=== PATIENT | male | born 1950 | race Caucasian/White ===

== ENCOUNTER → 2020-05-08 09:20 | Outpatient (BNVA) | payer MEDICARE, SELFPAY | PROVIDERS: PCP Internal Medicine Nephrology; Visit Provider Psychiatry & Neurology Neurology | DX: G47.33 Obstructive sleep apnea (adult) (pediatric) (principal); Z99.89 Dependence on other enabling machines and devices | CPT/HCPCS: 99214 ==

== ENCOUNTER 2020-05-21 10:47 | Outpatient (REF) | payer MEDICARE, SELFPAY ==
[2020-05-21 14:02] LABS: MANUAL DIFF FLAG NO
[2020-05-21 14:06] LABS: Basophils Percent Auto 0.2 % (0-2); Eosinophils Absolute Auto 0.2 X10*3/uL (0.0-0.4); Eosinophils Percent Auto 1.4 % (0-4); Hematocrit 42.4 % (42-52); Hemoglobin 12.9 g/dl (14.0-18.0); Imm Gran Abs Auto 0.04 X10*3/uL (0.00-0.03); Imm Gran Pct Auto 0.3 % (0.0-0.4); Lymphocytes Absolute Auto 2.7 X10*3/uL (1.2-4.9); Lymphocytes Percent Auto 20.2 % (20-40); Mean Corpuscular HGB Conc 30.4 g/dl (31.0-36.0); Mean Corpuscular Hemoglobin 25.9 pg (27.0-33.0); Mean Corpuscular Volume 85.1 fL (80-98); Mean Platelet Volume 10.4 fL (9.4-12.4); Monocytes Absolute Auto 0.7 X10*3/uL (0.1-1.2); Monocytes Percent Auto 4.9 % (2-11); Neutrophils Absolute Auto 9.9 X10*3/uL (2.0-8.3); Platelet Count 358 X10*3/uL (160-400); Red Blood Count 4.98 X10*6/uL (4.60-5.80); Red Cell Distribution Width 15.2 % (11.0-16.0); White Blood Count 13.6 X10*3/uL (4.8-10.8)
[2020-05-21 14:37] LABS: Alanine Aminotransferase 28 U/L (0-40); Albumin Level 3.6 g/dL (3.5-5.0); Alkaline Phosphatase 110 U/L (39-117); Anion Gap 14 (12-20); Aspartate Amino Transferase 23 U/L (5-37); Bilirubin Total 0.4 mg/dL (0.0-1.0); Blood Urea Nitrogen 17 mg/dL (9-16); Calcium 7.9 mg/dL (8.4-10.2); Carbon Dioxide 27 mmol/L (22-29); Chloride 106 mmol/L (96-108); Cholesterol 131 mg/dL; Estimated Glomerular Filt Rate > 60; Glucose Fasting 133 mg/dL (60-99); HDL Cholesterol 49 mg/dL; LDL Cholesterol Calculated 67 mg/dl; Potassium 5.1 mmol/l (3.3-5.1); Sodium 142 mmol/L (135-145); Total Protein 7.2 g/dL (6.5-8.0); Triglycerides 75 mg/dL
[2020-05-21 15:04] LABS: Thyroid Stimulating Hormone 0.76 mIU/mL (0.32-4.0)
[2020-05-21 15:39] LABS: Prostate Specific Antigen 31.65 ng/mL (<0.05-4.0)
== END 2020-05-21 10:48 | disposition home or self-care (01) ==
LOC: HO.HMGCLDS 10:47
PROVIDERS: PCP Internal Medicine; Visit Provider Internal Medicine
DX: E78.00 Pure hypercholesterolemia, unspecified (principal); E05.00 Thyrotoxicosis with diffuse goiter without thyrotoxic crisis or storm; Z12.5 Encounter for screening for malignant neoplasm of prostate
CPT/HCPCS: 36415; 80053; 80061; 84153; 84443; 85025

== ENCOUNTER 2020-06-06 09:37 | Outpatient (REF) | payer MEDICARE, SELFPAY ==
[2020-06-06 11:36] LABS: Glucose Urine UA NEG (NEG); Leukocyte Esterase Urine NEG (NEG); Nitrite Urine NEG (NEG); Specific Gravity - Urine 1.025 (1.005-1.025); Urine Blood 2+ (NEG); Urine Ketones NEG (NEG); Urine Protein NEG (NEG-TRACE)
[2020-06-06 11:40] LABS: Appearance Urine CLEAR; Color Urine YELLOW
[2020-06-06 11:47] LABS: Calcium 8.4 mg/dL (8.4-10.2); Magnesium 2.2 mg/dL (1.6-2.6)
[2020-06-06 12:03] LABS: Vitamin D 25-OH Total 47.2 ng/mL (>30)
[2020-06-06 12:08] LABS: Estimated Average Glucose 171 mg/dL; Hemoglobin A1c % 7.6 %; RBC Urine 0 /HPF (0); Renal Epithelial Cells Urine 1+ /LPF; Squamous Epithelial Cell Urine TRACE /LPF; WBC Urine 0 /HPF (0-4)
[2020-06-06 12:38] LABS: Creatinine Urine 135.38 mg/dL; Microalbum/Creatinine Ratio Ur 13.2 ug/mg cr
[2020-06-08 11:26] LABS: Calcium (PTHI) 8.8 mg/dL (8.6-10.3); PTHI 52 pg/mL (14-64)
== END 2020-06-06 09:38 | disposition home or self-care (01) ==
LOC: HO.HMGCLDS 09:37
PROVIDERS: PCP Internal Medicine; Visit Provider Internal Medicine
DX: E83.51 Hypocalcemia (principal); R73.01 Impaired fasting glucose; E55.9 Vitamin D deficiency, unspecified
CPT/HCPCS: 81001; 82043; 82306; 82310; 82330; 83036; 83735; 83970; 84153

== ENCOUNTER → 2020-07-31 08:32 | Outpatient (BNVA) | payer MEDICARE, SELFPAY | PROVIDERS: PCP Internal Medicine; Visit Provider Psychiatry & Neurology Neurology | DX: Z76.89 Persons encountering health services in other specified circumstances (principal) | CPT/HCPCS: Q3014 ==

== ENCOUNTER → 2020-08-23 13:35 | Outpatient (BNVA) | payer MEDICARE, SELFPAY | PROVIDERS: PCP Internal Medicine; Visit Provider Internal Medicine Cardiovascular Disease | DX: E78.5 Hyperlipidemia, unspecified (principal); Z51.81 Encounter for therapeutic drug level monitoring; Z79.899 Other long term (current) drug therapy | CPT/HCPCS: 93005; 99212 ==

== ENCOUNTER → 2021-02-12 09:30 | Outpatient (BNVA) | payer MEDICARE, SELFPAY | PROVIDERS: PCP Internal Medicine; Visit Provider Psychiatry & Neurology Neurology | DX: G47.33 Obstructive sleep apnea (adult) (pediatric) (principal) | CPT/HCPCS: Q3014 ==

== ENCOUNTER → 2021-02-18 15:11 | Outpatient (BNVA) | payer MEDICARE, SELFPAY | PROVIDERS: PCP Internal Medicine; Visit Provider Internal Medicine Cardiovascular Disease | DX: E78.5 Hyperlipidemia, unspecified (principal); Z79.899 Other long term (current) drug therapy | CPT/HCPCS: 99212 ==

== ENCOUNTER 2021-05-03 09:51 | Outpatient (REF) | payer MEDICARE, SELFPAY ==
[2021-05-03 11:25] LABS: MANUAL DIFF FLAG NO
[2021-05-03 11:32] LABS: Basophils Percent Auto 0.1 % (0-2); Eosinophils Absolute Auto 0.1 X10*3/uL (0.0-0.4); Eosinophils Percent Auto 1.2 % (0-4); Hematocrit 39.8 % (42-52); Hemoglobin 13.2 g/dl (14.0-18.0); Imm Gran Abs Auto 0.05 X10*3/uL (0.00-0.03); Imm Gran Pct Auto 0.5 % (0.0-0.4); Lymphocytes Absolute Auto 0.6 X10*3/uL (1.2-4.9); Mean Corpuscular HGB Conc 33.2 g/dl (31.0-36.0); Mean Corpuscular Hemoglobin 29.5 pg (27.0-33.0); Mean Corpuscular Volume 88.8 fL (80-98); Mean Platelet Volume 9.5 fL (9.4-12.4); Monocytes Absolute Auto 0.5 X10*3/uL (0.1-1.2); Monocytes Percent Auto 5.2 % (2-11); Platelet Count 269 X10*3/uL (160-400); Red Blood Count 4.48 X10*6/uL (4.60-5.80); Red Cell Distribution Width 12.5 % (11.0-16.0); White Blood Count 10.4 X10*3/uL (4.8-10.8)
[2021-05-03 11:34] LABS: Appearance Urine CLEAR; Color Urine YELLOW; Glucose Urine UA NEG (NEG); Leukocyte Esterase Urine NEG (NEG); Nitrite Urine NEG (NEG); Specific Gravity - Urine 1.025 (1.005-1.025); Urine Blood 2+ (NEG); Urine Ketones NEG (NEG); Urine Protein 1+ MG/DL (NEG-TRACE)
[2021-05-03 12:17] LABS: Alanine Aminotransferase 10 U/L (0-40); Albumin Level 3.5 g/dL (3.5-5.0); Alkaline Phosphatase 103 U/L (39-117); Anion Gap 14 (12-20); Aspartate Amino Transferase 11 U/L (5-37); Bilirubin Total 0.7 mg/dL (0.0-1.0); Blood Urea Nitrogen 17 mg/dL (9-16); Calcium 8.6 mg/dL (8.4-10.2); Carbon Dioxide 26 mmol/L (22-29); Chloride 105 mmol/L (96-108); Cholesterol 136 mg/dL; Estimated Glomerular Filt Rate > 60; Glucose Fasting 137 mg/dL (60-99); HDL Cholesterol 40 mg/dL; LDL Cholesterol Calculated 83 mg/dl; Potassium 4.6 mmol/L (3.3-5.1); Sodium 140 mmol/L (135-145); Total Protein 6.6 g/dL (6.5-8.0); Triglycerides 66 mg/dL
[2021-05-03 12:21] LABS: Estimated Average Glucose 126 mg/dL; Thyroid Stimulating Hormone 0.66 uIU/mL (0.32-4.0); Vitamin D 25-OH Total 54.5 ng/mL (>30)
[2021-05-03 12:38] LABS: Mucus Urine 4+ /LPF; Squamous Epithelial Cell Urine TRACE /LPF; WBC Urine 0-2 /HPF (0-4)
[2021-05-03 13:54] LABS: Creatinine Urine 233.27 mg/dL; Microalbum/Creatinine Ratio Ur 122.6 ug/mg cr
== END 2021-05-03 09:52 | disposition home or self-care (01) ==
LOC: HO.HMGCLDS 09:51
PROVIDERS: PCP Internal Medicine; Visit Provider Internal Medicine
DX: E11.9 Type 2 diabetes mellitus without complications (principal); E78.00 Pure hypercholesterolemia, unspecified; E55.9 Vitamin D deficiency, unspecified; E05.00 Thyrotoxicosis with diffuse goiter without thyrotoxic crisis or storm
CPT/HCPCS: 36415; 80053; 80061; 81001; 82043; 82306; 83036; 84443; 85025

== ENCOUNTER → 2021-07-23 11:23 | Outpatient (BNVA) | payer MEDICARE, SELFPAY | PROVIDERS: PCP Internal Medicine; Visit Provider Psychiatry & Neurology Neurology | DX: G47.33 Obstructive sleep apnea (adult) (pediatric) (principal) | CPT/HCPCS: 99212 ==

== ENCOUNTER → 2021-08-20 09:05 | Outpatient (REF) | payer MEDICARE, SELFPAY | LOC: HO.SL 09:05 | PROVIDERS: PCP Internal Medicine; Visit Provider Psychiatry & Neurology Neurology | DX: G47.33 Obstructive sleep apnea (adult) (pediatric) (principal) | CPT/HCPCS: 99211 ==

== ENCOUNTER 2021-11-12 09:44 | Outpatient (REF) | payer MEDICARE, SELFPAY ==
[2021-11-12 11:38] LABS: MANUAL DIFF FLAG NO
[2021-11-12 11:47] LABS: Basophils Percent Auto 0.7 % (0-2); Eosinophils Absolute Auto 0.1 X10*3/uL (0.0-0.4); Eosinophils Percent Auto 3.2 % (0-4); Hematocrit 40.6 % (42.0-52.0); Hemoglobin 13.4 g/dl (14.0-18.0); Imm Gran Abs Auto 0.01 X10*3/uL (0.00-0.03); Imm Gran Pct Auto 0.2 % (0.0-0.4); Lymphocytes Absolute Auto 1.2 X10*3/uL (1.2-4.9); Mean Corpuscular Hemoglobin 29.3 pg (27.0-33.0); Mean Corpuscular Volume 88.8 fL (80.0-98.0); Mean Platelet Volume 10.4 fL (9.4-12.4); Monocytes Absolute Auto 0.3 X10*3/uL (0.1-1.2); Monocytes Percent Auto 7.7 % (2-11); Neutrophils Absolute Auto 2.7 x10*3/uL (2.0-8.3); Neutrophils Percent Auto 61.2 % (45-73); Platelet Count 224 X10*3/uL (160-400); Red Blood Count 4.57 X10*6/uL (4.60-5.80); Red Cell Distribution Width 13.5 % (11.0-16.0); White Blood Count 4.4 X10*3/uL (4.8-10.8)
[2021-11-12 11:56] LABS: Appearance Urine CLEAR; Color Urine YELLOW; Glucose Urine UA NEG (NEG); Leukocyte Esterase Urine NEG (NEG); Nitrite Urine NEG (NEG); Urine Blood 2+ (NEG); Urine Ketones NEG (NEG); Urine Protein NEG (NEG-TRACE)
[2021-11-12 12:09] LABS: Alanine Aminotransferase 25 U/L (0-40); Albumin Level 3.7 g/dL (3.5-5.0); Alkaline Phosphatase 110 U/L (39-117); Anion Gap 9 (12-20); Aspartate Amino Transferase 24 U/L (5-37); Bilirubin Total 0.6 mg/dL (0.0-1.0); Blood Urea Nitrogen 23 mg/dL (9-16); Calcium 9.2 mg/dL (8.4-10.2); Carbon Dioxide 28 mmol/L (22-29); Chloride 108 mmol/L (96-108); Cholesterol 165 mg/dL; Estimated Glomerular Filt Rate > 60; Glucose Fasting 121 mg/dL (60-99); HDL Cholesterol 58 mg/dL; LDL Cholesterol Calculated 90 mg/dl; Potassium 4.9 mmol/L (3.3-5.1); Sodium 140 mmol/L (135-145); Total Protein 6.6 g/dL (6.5-8.0); Triglycerides 88 mg/dL
[2021-11-12 12:14] LABS: Estimated Average Glucose 117 mg/dL; Hemoglobin A1c % 5.7 %
[2021-11-12 12:24] LABS: Creatinine Urine 74.99 mg/dL
[2021-11-12 12:29] LABS: Thyroid Stimulating Hormone 0.77 uIU/mL (0.32-4.0)
[2021-11-12 13:20] LABS: WBC Urine 0 /HPF (0-4)
== END 2021-11-12 09:45 | disposition home or self-care (01) ==
LOC: HO.HMGCLDS 09:44
PROVIDERS: Visit Provider Internal Medicine
DX: E05.00 Thyrotoxicosis with diffuse goiter without thyrotoxic crisis or storm (principal); E55.9 Vitamin D deficiency, unspecified; E78.00 Pure hypercholesterolemia, unspecified; E11.9 Type 2 diabetes mellitus without complications
CPT/HCPCS: 36415; 80053; 80061; 81001; 82043; 82306; 83036; 84443; 85025

== ENCOUNTER 2021-11-23 02:32 | Emergency (ER) | payer MEDICARE, SELFPAY ==
--- NOTE | ~2021-11-23 | XR_ITS ---
EXAMINATION: XR FOREARM, LEFT CLINICAL INFORMATION: Left forearm pain COMPARISON: None TECHNIQUE: AP and lateral views of the left forearm were obtained. FINDINGS: Alignment across the elbow is anatomic on these views. Small chronic appearing calcification noted near the lateral humeral condyle, suggesting calcific tendinopathy. Radius and ulna appear intact. Alignment across the wrist appears anatomic. There is severe degenerative change in the wrist near the basal joint of the thumb. XR/XR forearm LT 2V IMPRESSION: No acute findings identified. Chronic/degenerative changes as noted above.
--- NOTE | ~2021-11-23 | XR_ITS ---
EXAMINATION: XR CHEST CLINICAL INFORMATION: Chest pain COMPARISON: None TECHNIQUE: 2 views of the chest were obtained. FINDINGS: Lung volumes are symmetric. Minimal streaky bibasilar opacities favor atelectasis. No additional consolidation is seen. No evidence of pneumothorax, pleural effusion, or pulmonary edema. Cardiac size is within normal limits. Thoracic aorta appears tortuous. No acute osseous findings are seen. XR/XR chest 2V IMPRESSION: Streaky bibasilar opacities favoring atelectasis.
--- NOTE | ~2021-11-23 | XR_ITS ---
EXAMINATION: XR SHOULDER, LEFT CLINICAL INFORMATION: Left shoulder pain COMPARISON: None TECHNIQUE: Three views of the left shoulder. FINDINGS: There is anatomic alignment across the glenohumeral joint with moderate degenerative change including joint space narrowing and spurring. No acute fracture is seen. The acromioclavicular joint is intact with moderate to severe degenerative change. XR/XR shoulder LT min 2V IMPRESSION: No acute findings identified. Chronic/degenerative changes of the acromioclavicular and glenohumeral joints.
[2021-11-23 02:46] VITALS: BP 199/78; PULSE 65; RESP 18; TEMP 37; O2SAT 99; BMI 36.1
[2021-11-23 04:19] VITALS: BP 181/90; PULSE 58; RESP 20; TEMP 36.8; O2SAT 99
--- NOTE | 2021-11-23 05:22 | ECG_ITS ---
Test Reason : Shoulder Pain Blood Pressure : / mmHG Vent. Rate : 056 BPM Atrial Rate : 056 BPM P-R Int : 146 ms QRS Dur : 100 ms QT Int : 464 ms P-R-T Axes : 052 026 007 degrees QTc Int : 447 ms Sinus bradycardia Incomplete right bundle branch block Borderline ECG No previous ECGs available Referred By: Trace Mendoza Electronically Signed By:Abram Arroyo
[2021-11-23 05:44] LABS: Basophils Percent Auto 0.4 % (0-2); Eosinophils Absolute Auto 0.1 X10*3/uL (0.0-0.4); Eosinophils Percent Auto 2.6 % (0-4); Hematocrit 40.2 % (42.0-52.0); Hemoglobin 13.2 g/dl (14.0-18.0); Imm Gran Abs Auto 0.01 X10*3/uL (0.00-0.03); Imm Gran Pct Auto 0.2 % (0.0-0.4); Lymphocytes Absolute Auto 0.9 X10*3/uL (1.2-4.9); Lymphocytes Percent Auto 18.5 % (20-40); Mean Corpuscular HGB Conc 32.8 g/dl (31.0-36.0); Mean Corpuscular Volume 88.4 fL (80.0-98.0); Mean Platelet Volume 9.8 fL (9.4-12.4); Monocytes Absolute Auto 0.6 X10*3/uL (0.1-1.2); Monocytes Percent Auto 11.4 % (2-11); Neutrophils Absolute Auto 3.4 x10*3/uL (2.0-8.3); Neutrophils Percent Auto 66.9 % (45-73); Platelet Count 161 X10*3/uL (160-400); Red Blood Count 4.55 X10*6/uL (4.60-5.80); Red Cell Distribution Width 13.3 % (11.0-16.0)
[2021-11-23 05:45] LABS: MANUAL DIFF FLAG NO
[2021-11-23 06:01] LABS: Alanine Aminotransferase 15 U/L (0-40); Albumin Level 3.7 g/dL (3.5-5.0); Alkaline Phosphatase 103 U/L (39-117); Anion Gap 12 (12-20); Aspartate Amino Transferase 15 U/L (5-37); Bilirubin Total 0.4 mg/dL (0.0-1.0); Blood Urea Nitrogen 18 mg/dL (9-16); C Reactive Protein 1.06 mg/dL (< or = 0.50); Calcium 9.3 mg/dL (8.4-10.2); Carbon Dioxide 28 mmol/L (22-29); Chloride 108 mmol/L (96-108); Creatinine Clr Calc Pharmacy 91.9; Estimated Glomerular Filt Rate > 60; Glucose Random 134 mg/dL (60-115); Potassium 4.6 mmol/L (3.3-5.1); Sodium 143 mmol/L (135-145); Total Protein 6.5 g/dL (6.5-8.0)
[2021-11-23 06:06] LABS: Troponin-I High Sensitivity < 3.5 ng/L (<3.5-35.0)
[2021-11-23 06:07] VITALS: BP 162/69; PULSE 58; RESP 16; TEMP 36.8; O2SAT 100
[2021-11-23 06:18] LABS: Erythrocyte Sedimentation Rate 30 MM/HR (0-15)
--- NOTE | 2021-11-23 07:02 | ED.EXTPRO ---
HPI - Extremity Problem General Chief complaint: Extremity Injury, Upper Stated complaint: L arm pain going up to neck Time Seen by Provider: 11/23/21 05:08 Source: patient and family (White) Mode of arrival: ambulatory Limitations: no limitations History of Present Illness HPI Narrative: 71-year-old male who presents emergency department for evaluation of left arm and shoulder pain. He states that he has been having pain in his left arm for approximately 1 1/2 weeks. He states that the pain was consult. He describes the pain as a dull ache. He states that over the past several days the pain his become more severe and is now 7/10. He states the pain was radiating to his neck as well. States that he felt like his left arm was slightly weak compared to the right. The patient has been taking Advil, ibuprofen and Excedrin with no relief his pain. When asked to localize the pain, he points to his left shoulder, left elbow and left forearm. The pain is not related to his activity level. He denies chest pain, shortness of breath, dyspnea on exertion, fever, chills, cough. He states that this morning his pain was severe, he states that will come up from sleep several times therefore he came to the emergency department for evaluation. The patient did see his doctor other last week for this pain and was noted to have high blood pressure. The plan is to follow-up his blood pressure and start medications of his blood pressure does not improve with lifestyle changes. Related Data Home Medications Medication Instructions Recorded Confirmed multivitamin 1 tab PO DAILY 08/23/20 metformin 500 mg tablet 500 mg PO DAILY tab 02/18/21 cholecalciferol (vitamin D3) 50 50 mcg PO DAILY 04/08/21 mcg (2,000 unit) capsule Previous Rx's Medication Instructions Recorded atorvastatin 40 mg tablet 40 mg PO DAILY #90 tab 08/21/21 oxycodone 5 mg tablet 5 mg PO Q4H PRN #14 tab 11/23/21 Allergies Allergy/AdvReac Type Severity Reaction Status Date / Time No Known Allergies Allergy Verified 07/23/21 11:35 Review of Systems Review of Systems: Yes all other systems are reviewed and are negative [facility] Past Medical History [facility] Narrative: Past medical history: Diabetes mellitus, hyperlipidemia, obstructive sleep apnea, prostate cancer currently being treated with Eligard and radiation therapy. Past surgical history: Hernia repair. Social history: He is . His is here in the emergency department with him. He denies tobacco use. He does drink alcohol. Denies drug use. Surgical History Hx of hand surgery Hx of knee surgery Hx of umbilical hernia repair Family History Family History Father Colon cancer Mother CVD (cardiovascular disease) Brother Cancer Social History Social History Alcohol intake: current Patient Tobacco Use Status: Former Tobacco user Years Smoked: 50 Advance Directives: No Advance Directives Information Provided: Yes Physical Exam Vital Signs: Vital Signs: Last Vital Signs Temp 98.2 F 11/23/21 06:07 Pulse 58 11/23/21 06:07 Resp 16 11/23/21 06:07 BP 162/69 H 11/23/21 06:07 Pulse Ox 100 11/23/21 06:07 BMI result Body Mass Index 36.1 Const: General: cooperative and no acute distress Orientation/consciousness: oriented to person and oriented to place Limitations: no limitations HEENT: Head: Yes normal to inspection, Yes normocephalic and Yes atraumatic Ears: external ears normal General nose exam: Normal external nose present Face and sinus: Yes normal facial exam Mouth: Normal oral and palatal mucosa present Throat: Yes posterior oropharynx normal Eyes: General: appearance normal, both eyes and all related structures Pupils: Equal, round and reactive pupils present Neck: Neck: Yes normal visual inspection, Yes no lymphadenopathy, Yes trachea midline and Yes supple Chest: Chest palpation & inspection: normal inspection of the chest and normal palpation of entire chest wall Resp: Effort & Inspection: normal respiratory effort and able to speak in complete sentences Auscultation: clear to auscultation bilaterally Cardio: Rate: regular rate Rhythm: regular rhythm Heart sounds: S1 normal heart sound present, S2 normal heart sound present and no murmurs GI: Inspection: Yes normal to inspection Palpation (GI): Soft to palpation, nontender and no guarding Auscultation: normal bowel sounds : General: Yes no CVA tenderness Back/Spine/Pelvis: Back: no CVA tenderness Skin: General skin exam: no rashes or lesions noted Neuro: General: oriented to person and oriented to place Cranial nerves: Yes CN's II-XII intact bilaterally and Yes Equal, round and reactive pupils present Cognition (Neuro): normal cognition Motor exam (neuro): 5/5 motor strength present throughout Extrem: Other: The patient's right extremity is normal with full range of motion of the shoulder , elbow, forearm and wrist joints without any pain or discomfort. The patient has full range of motion of his left arm joints except for the shoulder. With passive rotation and passive abduction of the shoulder the patient does have pain. He also has pain with palpation over the deltoid muscle. His extremities are neurovascular intact. There are no unusual skin changes over his extremities. Psych: Appearance: grossly normal Speech and movement: Normal speech and movement present Affect: normal affect Attitude: cooperative Thought process: Normal thought process present Thought content: Normal thought content present Course Course Course Narrative: 71-year-old male who presents emergency department for evaluation of left arm pain for 1 1/2 week with increased pain over the past several days, the pain became worse this morning to the point where is unable sleep. Pain is not related to his activity level and he has had no other concerning symptoms such as fever, chills chest pain, shortness of breath, dyspnea on exertion. Differential includes but is not limited to arthritis/degenerative joint disease, disc disease, joint infection, anginal equivalent, prostate metastatic lesions. I did order laboratory evaluation to include CBC, CMP, ESR, CRP, troponin, EKG, left shoulder and forearm x-rays 0717: Laboratory evaluation: CBC was normal troponin was below detectable limits. CRP was slightly elevated at 1.06. ESR was slightly elevated at 30. Radiology evaluation: X-ray of the patient's left forearm was unremarkable. Chest x-ray was unremarkable. Left shoulder x-ray did review AC joint and glenoid fossa the changes. The patient's laboratory evaluation did reveal some slight elevation in his CRP and ESR otherwise was unremarkable. Patient's left shoulder x-ray did reveal degenerative joint disease in the glenoid fossa joint. Given his physical finding of pain with passive range of motion of his left shoulder I believe that he has arthritis in the shoulder and this is the cause discomfort. I did discuss this with the patient his . The patient was advised to take ibuprofen 400 mg 3 times a day for the next 3 days, Tylenol as needed for pain and for pain not relieved by ibuprofen Tylenol this was described oxycodone. He was given ibuprofen 400 mg orally and oxycodone 5 mg orally and discharged home. MDM - Extremity (Nontraumatic) Lab Data Result diagrams: 11/23/21 05:38 11/23/21 05:38 Labs: Lab Results 11/23/21 11/23/21 11/23/21 Range/Units 05:38 05:38 05:38 WBC 5.0 (4.8-10.8) X10*3/uL RBC 4.55 L (4.60-5.80) X10*6/uL Hgb 13.2 L (14.0-18.0) g/dl Hct 40.2 L (42.0-52.0) % MCV 88.4 (80.0-98.0) fL MCH 29.0 (27.0-33.0) pg MCHC 32.8 (31.0-36.0) g/dl RDW 13.3 (11.0-16.0) % Plt Count 161 D (160-400) X10*3/uL MPV 9.8 (9.4-12.4) fL Immature Gran % (Auto) 0.2 (0.0-0.4) % Neut % (Auto) 66.9 (45-73) % Lymph % (Auto) 18.5 L (20-40) % Laurel % (Auto) 11.4 H (2-11) % Eos % (Auto) 2.6 (0-4) % Baso % (Auto) 0.4 (0-2) % Lymph # (Auto) 0.9 L (1.2-4.9) X10*3/uL Laurel # (Auto) 0.6 (0.1-1.2) X10*3/uL Eos # (Auto) 0.1 (0.0-0.4) X10*3/uL Baso # (Auto) 0.0 (0.0-0.2) X10*3/uL Abs Immat Gran (auto) 0.01 (0.00-0.03) X10*3/uL Absolute Neuts (auto) 3.4 (2.0-8.3) x10*3/uL Absolute Nucleated RBC 0.000 (0.0-0.012) X10*3/uL Nucleated RBC % (auto) 0.0 (0.0-0.2) /100WBC ESR 30 H (0-15) MM/HR Sodium 143 (135-145) mmol/L Potassium 4.6 (3.3-5.1) mmol/L Chloride 108 (96-108) mmol/L Carbon Dioxide 28 (22-29) mmol/L Anion Gap 12 (12-20) BUN 18 H (9-16) mg/dL Creatinine 0.85 (0.5-1.4) mg/dL Estim Creat Clear Calc 91.9 Estimated GFR > 60 Random Glucose 134 H (60-115) mg/dL Calcium 9.3 (8.4-10.2) mg/dL Total Bilirubin 0.4 (0.0-1.0) mg/dL AST 15 (5-37) U/L ALT 15 (0-40) U/L Alkaline Phosphatase 103 (39-117) U/L Total Creatine Kinase 41 (38-174) U/L Troponin I High Sens (<3.5-35.0) ng/L C-Reactive Protein 1.06 H (< or = 0.50) mg/dL Total Protein 6.5 (6.5-8.0) g/dL Albumin 3.7 (3.5-5.0) g/dL 11/23/21 Range/Units 05:38 WBC (4.8-10.8) X10*3/uL RBC (4.60-5.80) X10*6/uL Hgb (14.0-18.0) g/dl Hct (42.0-52.0) % MCV (80.0-98.0) fL MCH (27.0-33.0) pg MCHC (31.0-36.0) g/dl RDW (11.0-16.0) % Plt Count (160-400) X10*3/uL MPV (9.4-12.4) fL Immature Gran % (Auto) (0.0-0.4) % Neut % (Auto) (45-73) % Lymph % (Auto) (20-40) % Laurel % (Auto) (2-11) % Eos % (Auto) (0-4) % Baso % (Auto) (0-2) % Lymph # (Auto) (1.2-4.9) X10*3/uL Laurel # (Auto) (0.1-1.2) X10*3/uL Eos # (Auto) (0.0-0.4) X10*3/uL Baso # (Auto) (0.0-0.2) X10*3/uL Abs Immat Gran (auto) (0.00-0.03) X10*3/uL Absolute Neuts (auto) (2.0-8.3) x10*3/uL Absolute Nucleated RBC (0.0-0.012) X10*3/uL Nucleated RBC % (auto) (0.0-0.2) /100WBC ESR (0-15) MM/HR Sodium (135-145) mmol/L Potassium (3.3-5.1) mmol/L Chloride (96-108) mmol/L Carbon Dioxide (22-29) mmol/L Anion Gap (12-20) BUN (9-16) mg/dL Creatinine (0.5-1.4) mg/dL Estim Creat Clear Calc Estimated GFR Random Glucose (60-115) mg/dL Calcium (8.4-10.2) mg/dL Total Bilirubin (0.0-1.0) mg/dL AST (5-37) U/L ALT (0-40) U/L Alkaline Phosphatase (39-117) U/L Total Creatine Kinase (38-174) U/L Troponin I High Sens < 3.5 (<3.5-35.0) ng/L C-Reactive Protein (< or = 0.50) mg/dL Total Protein (6.5-8.0) g/dL Albumin (3.5-5.0) g/dL ECG Data Interpretation: 0541: Sinus bradycardia with a rate 56, normal OH interval, QRS duration QTC interval, no ST segment elevation, no ST segment depression, inverted T-wave in lead 3, borderline right bundle-branch block, no PACs, no PVCs. Discharge Plan Discharge Clinical Impression: Acute pain of left shoulder, Arthritis of left shoulder region Patient Disposition: Home, Self-Care Instructions: Osteoarthritis (ED) Additional Instructions: Your laboratory evaluation revealed a slight elevation in 2 inflammatory markers (CRP and ESR). Your EKG was normal. Your troponin (a marker of heart damage) was below detectable limits. Your chest x-ray was normal. The x-ray of your left shoulder did reveal arthritis of the shoulder joint (glenoid fossa). I believe that this arthritis of the shoulders the cause of your pain. Take ibuprofen 200 mg pills, 2 pills every 6 hours for 3 days to see if this reduce your pain and then as needed. For pain not relieved by Tylenol, take Tylenol (acetaminophen) 500 mg pills, 2 pills every 6 hours.. For pain not relieved by ibuprofen or Tylenol, take oxycodone 5 mg pills, 1 pill every 4 hours as needed for pain. Do not drive or work while taking this medication since they can cause sleepiness. Oxycodone is a narcotic medication that can be addicting. If you are concerned about addiction you can ask the pharmacist for less pills or do not get this prescription filled. Follow-up with your doctor in 2 days. Please return to the emergency department if your symptoms get worse or if you develop any symptoms that are concerning to you. Prescriptions: New oxycodone 5 mg tablet 5 mg PO Q4H PRN (Reason: pain) Qty: 14 0RF Rx Instructions: Patient may request partial fill No Action atorvastatin 40 mg tablet 40 mg PO DAILY Qty: 90 3RF cholecalciferol (vitamin D3) 50 mcg (2,000 unit) capsule 50 mcg PO DAILY 0RF metformin 500 mg tablet 500 mg PO DAILY 0RF multivitamin Tablet 1 tab PO DAILY 0RF
[2021-11-23] MEDS: Ibuprofen 400 MG TABLET PO (07:24)
[2021-11-23] MEDS: oxyCODONE HCl Immed Release 5 MG TABLET PO (07:24)
== END 2021-11-23 07:27 | disposition home or self-care (01) ==
PROVIDERS: Emergency Provider Emergency Medicine Emergency Medical Services; PCP Obstetrics & Gynecology
DX: M19.012 Primary osteoarthritis, left shoulder (principal); M25.512 Pain in left shoulder; M54.2 Cervicalgia; R07.89 Other chest pain; Z87.891 Personal history of nicotine dependence; Z79.899 Other long term (current) drug therapy
CPT/HCPCS: 36415; 71046; 73030; 73090; 80053; 82550; 84484; 85025; 85652; 86140; 93005; 99284

== ENCOUNTER → 2022-01-28 09:21 | Outpatient (BNVA) | payer MEDICARE, SELFPAY | PROVIDERS: PCP Obstetrics & Gynecology; Visit Provider Psychiatry & Neurology Neurology | DX: R53.1 Weakness (principal); B02.29 Other postherpetic nervous system involvement; G47.33 Obstructive sleep apnea (adult) (pediatric) | CPT/HCPCS: 99212 ==

== ENCOUNTER 2022-03-03 09:38 | Outpatient (REF) | payer MEDICARE, SELFPAY ==
--- NOTE | 2022-03-03 10:43 | MHC.AU.ANR ---
Adult Audiological Evaluation Date of Visit: 03/03/22 Reason for Appointment: Patient arrived for audiological re-evaluation. He reports that since his last evaluation on 08/09/2019 he has found himself saying what? more frequently. He has a particularly difficult time hearing in the car if the window is down or hearing someone from a distance. Has hearing been tested previously?: Yes Previous Hearing Test Results: At this clinic on 08/19/2019- Normal from 250-1500 Hz, sloping to moderately-severe sensorineural hearing loss bilaterally Medical History: Medical History: History of Graves Disease, Type 2 Diabetes, Osteoarthritis. Patient reports that he recently had Shingles, with pain radiating from behind his left ear down through his left arm. The pain behind his ear has subsided, and is now primarily impacting his left arm. Otoscopy: Right Ear: Unremarkable Left Ear: Unremarkable Tympanometry: Tympanometry performed due to: To assess integrity of the middle ear system Right Ear: Normal Middle Ear System (Type A) Left Ear: Normal Middle Ear System (Type A) Hearing Evaluation: Transducer(s) Used: Insert Earphones Method: Conventional Audiometry Stimuli Used: Pure Tones Right Ear: Description of Hearing: Borderline/mild sloping to moderately-severe sensorineural hearing loss Left Ear: Description of Hearing: Borderline/mild sloping to moderately-severe sensorineural hearing loss Speech Recognition Threshold (SRT): Method Used: Recorded Lists Stimuli Used: Spondee Words Right Ear: 25 dBHL Left Ear: 25 dBHL Word Discrimination: Method: Recorded Lists Word Lists Used: W-22 Right Ear: 80% at 65 dBHL Left Ear: 96% at 65 dBHL Most Comfortable Level (MCL): Right Ear: 65 dBHL Left Ear: 65 dBHL QuickSIN: 3 dB SNR loss, which suggests average level of difficulty listening in noise Comparison: Compared to the most recent evaluation: Thresholds have decreased bilaterally. Recommendations: Audiological re-evaluation in one year. Patient is a candidate for hearing aids. Patient is not sure if he is ready, and is concerned about the cost. [employer] offers a range of lower cost hearing aids. Patient could also potentially benefit from ckxf-wrp-[id number] (OTC) hearing aids, such as the [place] products; however, OTC hearing aids are approved for mild to moderate hearing losses and patient's high-frequency thresholds are slightly out of range. Diagnosis: Primary Diagnosis: H90.3 Bilateral Sensorineural Hearing Loss Signature: Provider: Fab Nuñez, CCC-A
== END 2022-03-03 09:39 | disposition home or self-care (01) ==
LOC: HO.SH 09:38
PROVIDERS: Visit Provider Internal Medicine
DX: H90.3 Sensorineural hearing loss, bilateral (principal)
CPT/HCPCS: 92557; 92567

== ENCOUNTER 2022-06-19 08:56 | Outpatient (REF) | payer MEDICARE, SELFPAY ==
--- NOTE | 2022-06-19 08:00 | EMG_ITS ---
Left median and ulnar motor and sensory studies were performed. Left radial sensory study was performed and paraspinal muscles were tested with a needle. IMPRESSION: 1. Pevl-bu-wirndtvx left median neuropathy across carpal tunnel. 2. Jsym-ct-elazquxy left ulnar neuropathy across cubital tunnel. MD DAYNA Ibarra/BREN / [id number]
[2022-06-19 11:17] LABS: MANUAL DIFF FLAG NO
[2022-06-19 11:24] LABS: Basophils Percent Auto 0.3 % (0-2); Eosinophils Absolute Auto 0.1 X10*3/uL (0.0-0.4); Eosinophils Percent Auto 2.2 % (0-4); Hematocrit 43.3 % (42.0-52.0); Hemoglobin 14.3 g/dl (14.0-18.0); Imm Gran Abs Auto 0.04 X10*3/uL (0.00-0.03); Imm Gran Pct Auto 0.7 % (0.0-0.4); Lymphocytes Absolute Auto 1.6 X10*3/uL (1.2-4.9); Lymphocytes Percent Auto 26.7 % (20-40); Mean Corpuscular Hemoglobin 29.2 pg (27.0-33.0); Mean Corpuscular Volume 88.4 fL (80.0-98.0); Mean Platelet Volume 9.7 fL (9.4-12.4); Monocytes Absolute Auto 0.4 X10*3/uL (0.1-1.2); Monocytes Percent Auto 6.5 % (2-11); Neutrophils Absolute Auto 3.8 x10*3/uL (2.0-8.3); Neutrophils Percent Auto 63.6 % (45-73); Platelet Count 296 X10*3/uL (160-400); Red Cell Distribution Width 12.2 % (11.0-16.0)
[2022-06-19 11:40] LABS: Appearance Urine Clear; Color Urine Yellow; Glucose Urine UA Negative (Negative); Leukocyte Esterase Urine Negative (Negative); Nitrite Urine Negative (Negative); PH 5.5 (5.0-9.0); Specific Gravity - Urine 1.025 (1.005-1.025); Urine Blood Negative (Negative); Urine Ketones Trace mg/dL (Negative); Urine Protein Trace mg/dL (Neg-Trace)
[2022-06-19 12:11] LABS: Estimated Average Glucose 163 mg/dL; Hemoglobin A1c % 7.3 %
[2022-06-19 12:12] LABS: Microalbum/Creatinine Ratio Ur 22.1 ug/mg cr
[2022-06-19 12:28] LABS: Alanine Aminotransferase 11 U/L (0-40); Albumin Level 3.6 g/dL (3.5-5.0); Alkaline Phosphatase 108 U/L (39-117); Anion Gap 10 (12-20); Aspartate Amino Transferase 10 U/L (5-37); Bilirubin Total 0.4 mg/dL (0.0-1.0); Blood Urea Nitrogen 24 mg/dL (9-16); Calcium 9.4 mg/dL (8.4-10.2); Carbon Dioxide 28 mmol/L (22-29); Chloride 106 mmol/L (96-108); Cholesterol 174 mg/dL; Estimated Glomerular Filt Rate > 60; Glucose Fasting 178 mg/dL (60-99); HDL Cholesterol 45 mg/dL; LDL Cholesterol Calculated 105 mg/dl; Potassium 5.3 mmol/L (3.3-5.1); Sodium 139 mmol/L (135-145); Thyroid Stimulating Hormone 0.99 uIU/mL (0.32-4.0); Total Protein 6.7 g/dL (6.5-8.0); Triglycerides 121 mg/dL; Vitamin D 25-OH Total 49.9 ng/mL (>30)
== END 2022-06-19 08:57 | disposition home or self-care (01) ==
LOC: HO.NEURO 08:56
PROVIDERS: PCP Internal Medicine; Visit Provider Psychiatry & Neurology Neurology
DX: E05.00 Thyrotoxicosis with diffuse goiter without thyrotoxic crisis or storm (principal); E55.9 Vitamin D deficiency, unspecified; E78.00 Pure hypercholesterolemia, unspecified; E11.9 Type 2 diabetes mellitus without complications; R53.1 Weakness; B02.29 Other postherpetic nervous system involvement
CPT/HCPCS: 36415; 80053; 80061; 81003; 82043; 82306; 83036; 84443; 85025; 95886; 95909

== ENCOUNTER → 2022-06-23 09:02 | Outpatient (BNVA) | payer MEDICARE, SELFPAY | PROVIDERS: PCP Internal Medicine; Referring Provider Internal Medicine; Visit Provider Internal Medicine Cardiovascular Disease | DX: I10 Essential (primary) hypertension (principal); E78.5 Hyperlipidemia, unspecified | CPT/HCPCS: 93005; 99212 ==

== ENCOUNTER → 2022-07-01 10:04 | Outpatient (BNVA) | payer MEDICARE, SELFPAY | PROVIDERS: PCP Internal Medicine; Visit Provider Psychiatry & Neurology Neurology | DX: G47.33 Obstructive sleep apnea (adult) (pediatric) (principal); R53.1 Weakness; B02.29 Other postherpetic nervous system involvement; Z99.89 Dependence on other enabling machines and devices | CPT/HCPCS: 99212 ==

== ENCOUNTER → 2022-07-08 08:56 | Outpatient (BNVA) | payer MEDICARE, SELFPAY | PROVIDERS: PCP Internal Medicine; Referring Provider Internal Medicine; Visit Provider Internal Medicine Cardiovascular Disease | DX: Z13.89 Encounter for screening for other disorder (principal) ==

== ENCOUNTER 2022-08-08 13:52 | Outpatient (REF) | payer MEDICARE, SELFPAY ==
--- NOTE | 2022-08-08 13:59 | ECG_ITS ---
Test Reason : GRAVES DIS Blood Pressure : / mmHG Vent. Rate : 066 BPM Atrial Rate : 066 BPM P-R Int : 146 ms QRS Dur : 100 ms QT Int : 436 ms P-R-T Axes : 060 037 036 degrees QTc Int : 457 ms Normal sinus rhythm Normal ECG When compared with ECG of 23-NOV-2021 05:41, Incomplete right bundle branch block is no longer Present Referred By: Alex Knight Electronically Signed By:KIERA IVAN MD
[2022-08-08 14:23] LABS: MANUAL DIFF FLAG NO
[2022-08-08 14:55] LABS: Basophils Percent Auto 0.5 % (0-2); Eosinophils Absolute Auto 0.1 X10*3/uL (0.0-0.4); Eosinophils Percent Auto 1.7 % (0-4); Hematocrit 41.4 % (42.0-52.0); Hemoglobin 14.4 g/dl (14.0-18.0); Imm Gran Abs Auto 0.02 X10*3/uL (0.00-0.03); Imm Gran Pct Auto 0.3 % (0.0-0.4); Lymphocytes Absolute Auto 1.5 X10*3/uL (1.2-4.9); Lymphocytes Percent Auto 24.4 % (20-40); Mean Corpuscular HGB Conc 34.8 g/dl (31.0-36.0); Mean Corpuscular Hemoglobin 29.8 pg (27.0-33.0); Mean Corpuscular Volume 85.5 fL (80.0-98.0); Mean Platelet Volume 9.9 fL (9.4-12.4); Monocytes Absolute Auto 0.4 X10*3/uL (0.1-1.2); Monocytes Percent Auto 6.3 % (2-11); Neutrophils Percent Auto 66.8 % (45-73); Platelet Count 195 X10*3/uL (160-400); Red Blood Count 4.84 X10*6/uL (4.60-5.80); Red Cell Distribution Width 13.1 % (11.0-16.0)
[2022-08-08 15:54] LABS: Alanine Aminotransferase 25 U/L (0-40); Albumin Level 3.8 g/dL (3.5-5.0); Alkaline Phosphatase 111 U/L (39-117); Anion Gap 14 (12-20); Aspartate Amino Transferase 21 U/L (5-37); Bilirubin Total 0.6 mg/dL (0.0-1.0); Blood Urea Nitrogen 24 mg/dL (9-16); Calcium 9.4 mg/dL (8.4-10.2); Carbon Dioxide 26 mmol/L (22-29); Chloride 105 mmol/L (96-108); Estimated Glomerular Filt Rate > 60; Glucose Random 171 mg/dL (60-115); Potassium 4.6 mmol/L (3.3-5.1); Sodium 140 mmol/L (135-145); Total Protein 6.6 g/dL (6.5-8.0)
[2022-08-08 16:03] LABS: Thyroid Stimulating Hormone 0.66 uIU/mL (0.32-4.0)
== END 2022-08-08 13:53 | disposition home or self-care (01) ==
LOC: HO.LAB 13:52
PROVIDERS: PCP Internal Medicine; Visit Provider Internal Medicine
DX: E05.00 Thyrotoxicosis with diffuse goiter without thyrotoxic crisis or storm (principal); E55.9 Vitamin D deficiency, unspecified; E11.9 Type 2 diabetes mellitus without complications
CPT/HCPCS: 36415; 80053; 84443; 85025; 85610; 93005

== ENCOUNTER → 2022-10-13 09:51 | Outpatient (BNVA) | payer MEDICARE, SELFPAY | PROVIDERS: PCP Internal Medicine; Referring Provider Internal Medicine; Visit Provider Internal Medicine Cardiovascular Disease | DX: E78.5 Hyperlipidemia, unspecified (principal); I10 Essential (primary) hypertension | CPT/HCPCS: 99212 ==

== ENCOUNTER → 2022-10-28 12:55 | Outpatient (BNVA) | payer MEDICARE, SELFPAY | PROVIDERS: PCP Internal Medicine; Visit Provider Psychiatry & Neurology Neurology | DX: G47.33 Obstructive sleep apnea (adult) (pediatric) (principal); R53.1 Weakness; B02.29 Other postherpetic nervous system involvement | CPT/HCPCS: 99212 ==

== ENCOUNTER 2022-11-06 09:53 | Outpatient (REF) | payer MEDICARE, SELFPAY ==
[2022-11-06 11:55] LABS: Estimated Average Glucose 151 mg/dL; Hemoglobin A1c % 6.9 %
[2022-11-06 12:28] LABS: Creatinine Urine 130.37 mg/dL; Microalbum/Creatinine Ratio Ur 15.3 ug/mg cr
[2022-11-06 14:53] LABS: Alanine Aminotransferase 19 U/L (0-40); Albumin Level 3.7 g/dL (3.5-5.0); Alkaline Phosphatase 113 U/L (39-117); Anion Gap 13 (12-20); Aspartate Amino Transferase 16 U/L (5-37); Bilirubin Total 0.6 mg/dL (0.0-1.0); Blood Urea Nitrogen 22 mg/dL (9-16); Calcium 9.3 mg/dL (8.4-10.2); Carbon Dioxide 28 mmol/L (22-29); Chloride 108 mmol/L (96-108); Cholesterol 153 mg/dL; Estimated Glomerular Filt Rate > 60; Glucose Fasting 135 mg/dL (60-99); HDL Cholesterol 52 mg/dL; LDL Cholesterol Calculated 84 mg/dl; Potassium 4.7 mmol/L (3.3-5.1); Sodium 144 mmol/L (135-145); Total Protein 6.1 g/dL (6.5-8.0); Triglycerides 88 mg/dL
== END 2022-11-06 09:54 | disposition home or self-care (01) ==
LOC: HO.HMGCLDS 09:53
PROVIDERS: PCP Internal Medicine; Visit Provider Internal Medicine
DX: E78.00 Pure hypercholesterolemia, unspecified (principal); E11.9 Type 2 diabetes mellitus without complications
CPT/HCPCS: 36415; 80053; 80061; 82043; 83036

== ENCOUNTER 2023-03-11 14:00 | Outpatient (AMB) | payer MEDICARE, SELFPAY ==
[2023-03-11 14:03] VITALS: BP 134/68; PULSE 68; BMI 37.8
--- NOTE | 2023-03-11 14:03 | MHC.OFFVIS ---
Intake Vital Signs 03/11/23 14:03 Height 5 ft 7 in Weight 241 lb 10.026 oz BMI 37.8 BP 134/68 Blood Pressure Location Lt brachial Position Sitting Pulse 68 Pulse Source Pulse Oximeter Intake Visit Reasons: 4 MON FUP (R/S BY US 7.31) Intake Note: 4 month follow up. 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 He was previously seen for atypical chest pain. He also had fatigue and underwent sleep study which diagnosed sleep apnea. He was diagnosed with prostate cancer and underwent radiation therapy. He was on bicalutamide which has been stopped. His QTCs were stable while taking bicalutamide. Denies any chest pain or shortness of breath. His atorvastatin was increased to 80 mg and hydrochlorothiazide 25 mg was added on last visit because blood pressure was elevated. On follow-up his blood pressure is much improved. He also had a bony spur causing nerve compression in the neck and he underwent surgery recently at [facility]. He is recovering from surgery at this point. He still has some weakness in the left arm. His back pain and arm pain is improved. 03/11/23: He returns for follow-up. Blood pressure is well controlled with hydrochlorothiazide. He is taking atorvastatin 80 mg at this stage. His last LDL cholesterol is 84. Total cholesterol 153, triglycerides 88 and HDL 52. He wishes to undergo knee replacement surgery. He is here for perioperative cardiovascular risk assessment. He is denying any chest discomfort or shortness of breath. He is saying he is able to walk more than a block at this stage and does not get any symptoms. [facility] Medical History Shingles Weakness Surgical History History of neck surgery Hx of hand surgery Hx of knee surgery Hx of umbilical hernia repair Family History Father Colon cancer Mother CVD (cardiovascular disease) Brother Cancer Social History Alcohol intake: current Patient Tobacco Use Status: Former Tobacco user Years Smoked: 50 +/- Review of Systems Const Denies weakness ENT Denies dizziness Card Denies chest pain, Denies chest pain with activity, Denies syncope, Denies rapid heart rate, Denies pedal edema, Denies edema, Denies leg edema, Denies lightheadedness, Denies palpitations, Denies dyspnea, Denies dyspnea on exertion and Denies orthopnea Resp Denies cough, Denies dyspnea and Denies dyspnea on exertion GI Denies hematochezia and Denies change in stool character Musc Denies abnormal gait, Denies muscle cramps, Denies muscle weakness, Denies numbness, Denies radiating pain into limb and Denies tingling Neuro Denies abnormal gait, Denies dizziness, Denies syncope, Denies numbness, Denies tingling and Denies weakness Endo Denies palpitations Physical Exam Vital Signs: Last Vital Signs Pulse 68 03/11/23 14:03 BP 134/68 03/11/23 14:03 BMI result Body Mass Index 37.8 GENERAL APPEARANCE: in no acute distress, well developed, well nourished. NECK/THYROID: no carotid bruit, no jugular venous distention. SKIN: no suspicious lesions, warm and dry. HEART: no murmurs, regular rate and rhythm, S1, S2 normal. LUNGS: clear to auscultation bilaterally. ABDOMEN: normal, bowel sounds present, soft, nontender, nondistended. EXTREMITIES: no edema. PERIPHERAL PULSES: equal. NEUROLOGIC: nonfocal, alert and oriented. Assessment & Plan Assessment & Plan (1) Essential hypertension: Code(s): I10 - Essential (primary) hypertension (2) Hyperlipidemia: Code(s): E78.5 - Hyperlipidemia, unspecified Qualifiers: Hyperlipidemia type: unspecified Qualified Code(s): E78.5 - Hyperlipidemia, unspecified (3) Preop cardiovascular exam: Code(s): Z01.810 - Encounter for preprocedural cardiovascular examination Plan Pleasant 72-year-old gentleman who has a presenting for follow-up. Blood pressure control is good. Continue same medications. He has HDL is 52 and LDL of 84. Continue atorvastatin 80 mg as before. No changes required. He wishes to undergo knee surgery. He is intermediate risk for perioperative cardiovascular complications. Follow-up in 6 months. Thank you for allowing me to participate in the care of your patient. Please feel free to contact me if you have any questions. Coding Level of Care Code Est Pt Level 4 (07774) Diagnoses Essential hypertension I10 Hyperlipidemia E78.5 Hyperlipidemia type: unspecified Preop cardiovascular exam Z01.810
== END 2023-03-11 14:26 | disposition home or self-care (01) ==
PROVIDERS: PCP Internal Medicine; Referring Provider Internal Medicine; Visit Provider Internal Medicine Cardiovascular Disease
DX: I10 Essential (primary) hypertension (principal); E78.5 Hyperlipidemia, unspecified; Z01.810 Encounter for preprocedural cardiovascular examination
CPT/HCPCS: 99214

== ENCOUNTER → 2023-03-11 14:00 | Outpatient (BNVA) | payer MEDICARE, SELFPAY | PROVIDERS: PCP Internal Medicine; Referring Provider Internal Medicine; Visit Provider Internal Medicine Cardiovascular Disease | DX: Z01.810 Encounter for preprocedural cardiovascular examination (principal); I10 Essential (primary) hypertension; E78.5 Hyperlipidemia, unspecified | CPT/HCPCS: 99212 ==

== ENCOUNTER 2023-08-18 10:04 | Day surgery (SDC) | payer MEDICARE, SELFPAY ==
[2023-08-14 13:52] VITALS: BMI 37.3
[2023-08-18 10:41] VITALS: BP 154/74; PULSE 66; RESP 16; TEMP 36.4; O2SAT 99; BMI 38.8
[2023-08-18 11:05] LABS: Glucose, Whole Blood 174 mg/dL (60-115)
--- NOTE | 2023-08-18 11:05 | MHC.SHP ---
Pre-Procedural Eval Section A - 24 Hr Update-Section A only Date of Service: 08/18/23 Section B - Complete if H&P > 30 days Chief Complaint: screening Details of Present Illness: see H*P no changes Relevant Family History (Specify if Yes): No Relevant Social History: None Present Medications: see Short Stay Collaborative assessment Medical History: No relevant PMH Allergies: Allergies Allergy/AdvReac Type Severity Reaction Status Date / Time No Known Allergies Allergy Verified 08/18/23 10:37 Review of Systems Sugical H&P ROS: Negative: Constitution, Cardiovascular, Respiratory, Neurological, Psychiatric, Hem-Onc, Allergic/Immunologic, Gastrointestinal, Genitourinary, Musculoskeletal, Integumentary, Endocrine and Eyes/Ears/Nose/Throat Exam Surgical H&P Exam: Normal: HEENT, Normal: Heart, Normal: Lungs, Normal: Extremities, Normal: Abdomen, Normal: Skin and Normal: Neurological Plan Diagnosis/Plan: Unchanged I have reviewed the history and physical and performed a pertinent physical examination on my patient. No changes have occurred unless specified. Time Spent With Patient Time: Total time managing care of this patient today ____ minutes.
[2023-08-18] MEDS: Lactated Ringers 1,000 ML 100 ML IVCONT (11:09)
[2023-08-18 11:50] VITALS: BP 110/56; PULSE 68; RESP 16; TEMP 36.1; O2SAT 95
[2023-08-18 12:05] VITALS: BP 126/65; PULSE 62; RESP 16; TEMP 36.1; O2SAT 97
--- NOTE | 2023-08-18 12:19 | OP_ITS ---
DATE OF SERVICE: 08/18/2023 SURGEON: Dave Almaraz MD INDICATIONS: Colon cancer screening. PREOPERATIVE DIAGNOSIS: POSTOPERATIVE DIAGNOSIS: PROCEDURE PERFORMED: Colonoscopy to the terminal ileum with biopsy and snare polypectomy. ESTIMATED BLOOD LOSS: COMPLICATIONS: ANESTHESIA: Monitored anesthesia care. ASSISTANTS: SPECIMENS: DESCRIPTION OF PROCEDURE: A history and physical was performed. The risks and benefits of the procedure were explained to the patient, and informed consent was obtained. The patient was placed in the left lateral decubitus position. A digital rectal exam was performed and was found to be normal. The Olympus pediatric video colonoscope was introduced into the rectum and advanced to the cecum. The cecum was identified by transillumination, palpation, and identification of ileocecal valve. Examination was performed. The scope was removed. He tolerated the procedure well and was returned to the recovery area in stable condition. FINDINGS: The terminal ileum was briefly examined and appeared normal. The visualized colonic mucosa was normal. The quality of prep was good. Multiple polyps were identified and removed using combination of biopsy forceps and snare polypectomy. All were less than 10 mm. There was a polyp in the cecum, right colon polyp, and 2 polyps at 80 cm. No other polyps were identified. Retroflexed examination showed some small internal hemorrhoids. IMPRESSION: Colon polyps. RECOMMENDATION: Follow up the biopsy results. MD LISA Mitchell/TESSAL / [phone]
== END 2023-08-18 12:48 | disposition home or self-care (01) ==
PROVIDERS: PCP Internal Medicine; Visit Provider Internal Medicine Gastroenterology
PROC: 0DJD8ZZ Inspection of Lower Intestinal Tract, Via Natural or Artificial Opening Endoscopic (ICD-10-PCS; CPT 45378; principal; 2023-08-18 11:40)
DX: Z12.11 Encounter for screening for malignant neoplasm of colon (principal); Z86.010 Personal history of colon polyps; D12.2 Benign neoplasm of ascending colon; D12.4 Benign neoplasm of descending colon; K63.5 Polyp of colon; K64.8 Other hemorrhoids; K21.9 Gastro-esophageal reflux disease without esophagitis; E11.9 Type 2 diabetes mellitus without complications; E78.5 Hyperlipidemia, unspecified; E05.00 Thyrotoxicosis with diffuse goiter without thyrotoxic crisis or storm; G47.33 Obstructive sleep apnea (adult) (pediatric); C61 Malignant neoplasm of prostate; Z92.21 Personal history of antineoplastic chemotherapy; Z92.3 Personal history of irradiation; Z79.84 Long term (current) use of oral hypoglycemic drugs; Z79.899 Other long term (current) drug therapy; Z98.890 Other specified postprocedural states; Z87.891 Personal history of nicotine dependence
CPT/HCPCS: 45385; 45380; 82947; 88305; J2704

== ENCOUNTER 2023-08-24 11:15 | Outpatient (AMB) | payer MEDICARE, SELFPAY ==
[2023-08-24 11:35] VITALS: BP 132/72; PULSE 64; BMI 38.9
--- NOTE | 2023-08-24 11:35 | A.OFFVIS_ITS ---
Intake Vital Signs 08/24/23 11:35 Height 5 ft 7 in Weight 248 lb 10.903 oz BMI 38.9 BP 132/72 Blood Pressure Location Lt brachial Position Sitting Pulse 64 Intake Visit Reasons: 6 mth f/up Intake Note: pt its here for a 6 mnth f/up pt states that he its feeling fine. Dupligraph Operator Required: No Accompanied by: Self / Same As Patient Allergies No Known Allergies Allergy (Verified 08/18/23 10:37) Medication List - Last Reconciled 08/24/23 by Abram Arroyo MD atorvastatin 80 mg PO DAILY blood pressure monitor As directed cholecalciferol (vitamin D3) 50 mcg PO DAILY hydrochlorothiazide 25 mg PO DAILY 90 days metformin 500 mg PO BID HPI HPI Comments History of Present Illness Details 72-year-old gentleman here for follow-up . He was previously seen for atypical chest pain. He also had fatigue and underwent sleep study which diagnosed sleep apnea. He was diagnosed with prostate cancer and underwent radiation therapy. He was on bicalutamide which has been stopped. His QTCs were stable while taking bicalutamide. Denies any chest pain or shortness of breath. His atorvastatin was increased to 80 mg and hydrochlorothiazide 25 mg was added on last visit because blood pressure was elevated. On follow-up his blood pressure is much improved. He also had a bony spur causing nerve compression in the neck and he underwent surgery recently at [facility]. He is recovering from surgery at this point. He still has some weakness in the left arm. His back pain and arm pain is improved. 03/11/23: He returns for follow-up. Blo od pressure is well controlled with hydrochlorothiazide. He is taking atorvastatin 80 mg at this stage. His last LDL cholesterol is 84. Total cholesterol 153, triglycerides 88 and HDL 52. He wishes to undergo knee replacement surgery. He is here for perioperative cardiovascular risk assessment. He is denying any chest discomfort or shortness of breath. He is saying he is able to walk more than a block at this stage and does not get any symptoms. 08/24/2023: He returns for follow-up. He has been doing well. He underwent right knee replacement. He is walking with a cane. No chest discomfort or shortness of breath. Blood pressure control is good. ON LICENSE OF [facility] Medical History (Updated 08/14/23 @ 14:00 by Rossy Pandey RN) Diabetes Sleep apnea HTN (hypertension) RBBB GERD (gastroesophageal reflux disease) Elevated cholesterol Prostate cancer Graves disease Shingles Weakness Surgical History History of total right knee replacement History of total left knee replacement History of surgery on lower extremity H/O colonoscopy History of neck surgery Hx of umbilical hernia repair Hx of hand surgery Family History Father Colon cancer Mother CVD (cardiovascular disease) Brother Cancer Social History Alcohol intake: current Alcohol intake frequency: a few times a month Patient Tobacco Use Status: Former Tobacco user Tobacco use type: Cigarette Years Smoked: 50 +/- Review of Systems Const Denies chills, Denies fatigue, Denies fever(s), Denies frequent falls, Denies weakness, Denies weight gain and Denies weight loss ENT Denies dizziness Card Denies chest pain, Denies leg edema, Denies lightheadedness, Denies palpitations, Denies dyspnea and Denies dyspnea on exertion Resp Denies cough, Denies dyspnea and Denies dyspnea on exertion GI Denies hematochezia Musc Denies abnormal gait, Denies muscle weakness, Denies numbness, Denies radiating pain into limb and Denies tingling Neuro Denies abnormal gait, Denies dizziness, Denies frequent falls, Denies numbness, Denies tingling and Denies weakness Endo Denies fatigue and Denies palpitations Physical Exam Vital Signs: Last Vital Signs Pulse 64 08/24/23 11:35 BP 132/72 08/24/23 11:35 BMI result Body Mass Index 38.9 GENERAL APPEARANCE: in no acute distress, well developed, well nourished. NECK/THYROID: no carotid bruit, no jugular venous distention. SKIN: no suspicious lesions, warm and dry. HEART: no murmurs, regular rate and rhythm, S1, S2 normal. LUNGS: clear to auscultation bilaterally. ABDOMEN: normal, bowel sounds present, soft, nontender, nondistended. EXTREMITIES: no edema. PERIPHERAL PULSES: equal. NEUROLOGIC: nonfocal, alert and oriented. Office Procedures EKG Details: Normal sinus rhythm 64 beats per minute, normal ECG, QTC 462 milliseconds. [id number], Complete Assessment & Plan Assessment & Plan (1) Essential hypertension: Code(s): I10 - Essential (primary) hypertension (2) Hyperlipidemia: Code(s): E78.5 - Hyperlipidemia, unspecified Qualifiers: Hyperlipidemia type: unspecified Qualified Code(s): E78.5 - Hyperlipidemia, unspecified Plan Pleasant 73 year gentleman who is here for follow-up. He has known history of hypertension. Blood pressure control is good. Continue same medications. He is asking whether he needs statins. He has no obvious side effects from statins and I have advised him to continue the statins for now. Will see us back in 1 year. Thank you for allowing me to participate in the care of your patient. Please feel free to contact me if you have any questions. Coding Level of Care Code Est Pt Level 3 (02204) Diagnoses Essential hypertension I10 Hyperlipidemia, unspecified hyperlipidemia type E78.5 Hyperlipidemia type: unspecified CPT Codes EKG - CPT: 60208-[id number], Complete ([id number])
== END 2023-08-24 11:58 | disposition home or self-care (01) ==
PROVIDERS: PCP Internal Medicine; Visit Provider Internal Medicine Cardiovascular Disease
DX: I10 Essential (primary) hypertension (principal); E78.5 Hyperlipidemia, unspecified
CPT/HCPCS: 93010; 99213

== ENCOUNTER → 2023-08-24 11:15 | Outpatient (BNVA) | payer MEDICARE, SELFPAY | PROVIDERS: PCP Internal Medicine; Visit Provider Internal Medicine Cardiovascular Disease | DX: I10 Essential (primary) hypertension (principal); E78.5 Hyperlipidemia, unspecified | CPT/HCPCS: 93005; 99212 ==

== ENCOUNTER 2023-11-04 11:18 | Outpatient (REF) | payer MEDICARE, SELFPAY ==
[2023-11-04 13:12] LABS: MANUAL DIFF FLAG NO
[2023-11-04 13:28] LABS: Basophils Percent Auto 0.2 % (0-2); Eosinophils Absolute Auto 0.1 X10*3/uL (0.0-0.4); Eosinophils Percent Auto 2.2 % (0-4); Hematocrit 41.5 % (42.0-52.0); Hemoglobin 14.1 g/dl (14.0-18.0); Imm Gran Abs Auto 0.02 X10*3/uL (0.00-0.03); Imm Gran Pct Auto 0.4 % (0.0-0.4); Lymphocytes Absolute Auto 1.5 X10*3/uL (1.2-4.9); Lymphocytes Percent Auto 29.7 % (20-40); Mean Corpuscular Hemoglobin 29.6 pg (27.0-33.0); Mean Corpuscular Volume 87.2 fL (80.0-98.0); Mean Platelet Volume 10.5 fL (9.4-12.4); Monocytes Absolute Auto 0.4 X10*3/uL (0.1-1.2); Monocytes Percent Auto 7.6 % (2-11); Neutrophils Percent Auto 59.9 % (45-73); Platelet Count 215 X10*3/uL (160-400); Red Blood Count 4.76 X10*6/uL (4.60-5.80); Red Cell Distribution Width 12.8 % (11.0-16.0)
[2023-11-04 13:42] LABS: Appearance Urine Clear; Color Urine Yellow; Glucose Urine UA Negative (Negative); Leukocyte Esterase Urine Negative (Negative); Nitrite Urine Negative (Negative); PH 5.5 (5.0-9.0); Specific Gravity - Urine 1.025 (1.005-1.025); UMIC TRIGGER UA YES; Urine Blood Trace (Negative); Urine Ketones Negative (Negative); Urine Protein Negative (Neg-Trace)
[2023-11-04 13:44] LABS: Estimated Average Glucose 180 mg/dL; Hemoglobin A1c % 7.9 % (<6.0)
[2023-11-04 13:49] LABS: Bacteria Urine None Seen (None Seen); Hyaline Casts Urine 0-2 /LPF (0-2); Squamous Epithelial Cell Urine 0-2 /HPF (0-2); WBC Urine 0-5 /HPF (0-5)
[2023-11-04 14:28] LABS: Alanine Aminotransferase 23 U/L (0-40); Albumin Level 3.6 g/dL (3.5-5.0); Alkaline Phosphatase 103 U/L (39-117); Anion Gap 11 (12-20); Aspartate Amino Transferase 22 U/L (5-37); Bilirubin Total 0.6 mg/dL (0.0-1.0); Blood Urea Nitrogen 24 mg/dL (9-16); Calcium 9.4 mg/dL (8.4-10.2); Carbon Dioxide 30 mmol/L (22-29); Chloride 104 mmol/L (96-108); Cholesterol 155 mg/dL (<200); Estimated Glomerular Filt Rate > 60; Glucose Fasting 166 mg/dL (60-99); HDL Cholesterol 52 mg/dL (>40); LDL Cholesterol Calculated 74 mg/dL (<100); Potassium 4.7 mmol/L (3.3-5.1); Sodium 140 mmol/L (135-145); Thyroid Stimulating Hormone 0.69 uIU/mL (0.32-4.0); Total Protein 6.6 g/dL (6.5-8.0); Triglycerides 145 mg/dL (<150); Vitamin D 25-OH Total 42.5 ng/mL (>30)
== END 2023-11-04 11:19 | disposition home or self-care (01) ==
LOC: HO.HMGCLDS 11:18
PROVIDERS: PCP Internal Medicine; Visit Provider Internal Medicine
DX: E11.9 Type 2 diabetes mellitus without complications (principal); E78.00 Pure hypercholesterolemia, unspecified; I10 Essential (primary) hypertension; E55.9 Vitamin D deficiency, unspecified; E66.01 Morbid (severe) obesity due to excess calories; C61 Malignant neoplasm of prostate
CPT/HCPCS: 36415; 80053; 80061; 81001; 82306; 83036; 84443; 85025

== ENCOUNTER 2023-11-09 06:50 | Outpatient (REF) | payer MEDICARE, SELFPAY ==
[2023-11-09 14:09] LABS: Total Volume 24 Hour Urine 1300 mL
[2023-11-09 14:10] LABS: Microalbumin Excretion Rate Ur 12 mg/24Hr
== END 2023-11-09 06:51 | disposition home or self-care (01) ==
LOC: HO.HMGCLNP 06:50
PROVIDERS: PCP Internal Medicine; Visit Provider Internal Medicine
DX: E11.9 Type 2 diabetes mellitus without complications (principal); I10 Essential (primary) hypertension; E78.00 Pure hypercholesterolemia, unspecified; E55.9 Vitamin D deficiency, unspecified; C61 Malignant neoplasm of prostate; E66.01 Morbid (severe) obesity due to excess calories
CPT/HCPCS: 82043

== ENCOUNTER → 2023-11-10 10:07 | Outpatient (BNVA) | payer MEDICARE, SELFPAY | PROVIDERS: PCP Internal Medicine; Visit Provider Nurse Practitioner Family | DX: G47.33 Obstructive sleep apnea (adult) (pediatric) (principal) | CPT/HCPCS: 99212 ==

== ENCOUNTER 2023-11-10 10:10 | Outpatient (AMB) | payer MEDICARE, SELFPAY ==
--- NOTE | 2023-11-10 10:09 | MHC.OFFVIS ---
Vital Signs 11/10/23 10:10 Height 5 ft 7 in Weight 251 lb BMI 39.3 BP 130/78 Blood Pressure Location Rt brachial Position Sitting Pulse 68 Pulse Source Pulse Oximeter Pulse Oximetry (%) 98 Oxygen Delivery Method Room Air Intake Visit Reasons: Follow up EDMAR - Confirmed Intake Note: Patient presents for follow up.Patient doing well with the cpap Allergies No Known Allergies Allergy (Verified 11/10/23 10:11) HPI Comments Details: 73 y/o male patient comes for follow up of EDMAR on CPAP. The CPAP compliance and therapy response reviewed (08/05/23-11/02/23). He is on CPAP at 8cmH2O. The usage days 90% and the average usage hours 7 hrs 40 min. The residual AHI was 1.3/ hr. He is using his CPAP regularly. Sleeps better with CPAP and daytime functioning has improved. Leg movements are better. [facility] Medical History (Updated 08/14/23 @ 14:00 by Rossy Pandey RN) Diabetes Sleep apnea HTN (hypertension) RBBB GERD (gastroesophageal reflux disease) Elevated cholesterol Prostate cancer Graves disease Shingles Weakness Surgical History History of total right knee replacement History of total left knee replacement History of surgery on lower extremity H/O colonoscopy History of neck surgery Hx of umbilical hernia repair Hx of hand surgery Family History Father Colon cancer Mother CVD (cardiovascular disease) Brother Cancer Social History Alcohol intake: current Alcohol intake frequency: a few times a month Patient Tobacco Use Status: Former Tobacco user Tobacco use type: Cigarette Years Smoked: 50 +/- Review of Systems Const All systems reviewed & are unremarkable except as noted in HPI and below Physical Exam Vital Signs: Last Vital Signs Pulse 68 11/10/23 10:10 BP 130/78 11/10/23 10:10 Pulse Ox 98 11/10/23 10:10 Oxygen Delivery Method Room Air 11/10/23 10:10 BMI result Body Mass Index 39.3 Alert Awake oriented to time, place and person Mood - stable Speech- normal Cognition- intact Const General: cooperative Nutritional Appearance: obese Orientation/consciousness: patient oriented x3 HEENT Head: Yes normocephalic Resp Effort & Inspection: normal respiratory effort and able to speak in complete sentences Neuro General: patient oriented x3, tone normal and moves all extremities Cranial nerves: Yes Nystagmus not present, Yes Normal facial strength present, Yes Midline tongue present and Yes Symmetric palate elevation present Cognition (Neuro): normal cognition Gait exam (Neuro): Antalgic gait present Motor exam (neuro): 5/5 motor strength present throughout and Normal motor muscle tone present throughout Assessment & Plan Assessment & Plan (1) Obstructive sleep apnea: Code(s): G47.33 - Obstructive sleep apnea (adult) (pediatric) Category: Medical Plan Continue to use CPAP 8cmH2O as patient experiences good clinical effects. Stressed compliance, use CPAP nightly and more than 4 hrs. Encouraged patient to increase daily physical activities and wt reduction advised. Coding Level of Care Code Est Pt Level 3 (48998) Diagnoses Obstructive sleep apnea G47.33
[2023-11-10 10:10] VITALS: BP 130/78; PULSE 68; O2SAT 98; BMI 39.3
== END 2023-11-10 10:27 | disposition home or self-care (01) ==
PROVIDERS: PCP Internal Medicine; Visit Provider Nurse Practitioner Family
DX: G47.33 Obstructive sleep apnea (adult) (pediatric) (principal)
CPT/HCPCS: 99213

== ENCOUNTER 2024-08-29 11:05 | Outpatient (AMB) | payer MEDICARE, SELFPAY ==
[2024-08-29 11:15] VITALS: BP 120/64; PULSE 63; BMI 37.1
--- NOTE | 2024-08-29 11:15 | MHC.OFFVIS ---
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 He was previously seen for atypical chest pain. He also had fatigue and underwent sleep study which diagnosed sleep apnea. He was diagnosed with prostate cancer and underwent radiation therapy. He was on bicalutamide which has been stopped. His QTCs were stable while taking bicalutamide. Denies any chest pain or shortness of breath. His atorvastatin was increased to 80 mg and hydrochlorothiazide 25 mg was added on last visit because blood pressure was elevated. On follow-up his blood pressure is much improved. He also had a bony spur causing nerve compression in the neck and he underwent surgery recently at [facility]. He is recovering from surgery at this point. He still has some weakness in the left arm. His back pain and arm pain is improved. 03/11/23: He returns for follow-up. Blood pressure is well controlled with hydrochlorothiazide. He is taking atorvastatin 80 mg at this stage. His last LDL cholesterol is 84. Total cholesterol 153, triglycerides 88 and HDL 52. He wishes to undergo knee replacement surgery. He is here for perioperative cardiovascular risk assessment. He is denying any chest discomfort or shortness of breath. He is saying he is able to walk more than a block at this stage and does not get any symptoms. 08/24/2023: He returns for follow-up. He has been doing well. He underwent right knee replacement. He is walking with a cane. No chest discomfort or shortness of breath. Blood pressure control is good. 08/29/24: He is here for follow-up. Blood pressure well controlled. No SOB. One episode of chest pain at nighttime lasting approximately 15 mins few months back. He does not remember when. He said he was fine the next day and has not had any significant symptoms with activity since then. [facility] Medical History (Updated 08/14/23 @ 14:00 by Rossy Pandey RN) Diabetes Sleep apnea HTN (hypertension) RBBB GERD (gastroesophageal reflux disease) Elevated cholesterol Prostate cancer Graves disease Shingles Weakness Surgical History History of total right knee replacement History of total left knee replacement History of surgery on lower extremity H/O colonoscopy History of neck surgery Hx of umbilical hernia repair Hx of hand surgery Family History Father Colon cancer Mother CVD (cardiovascular disease) Brother Cancer Social History Alcohol intake: current Alcohol intake frequency: a few times a month Patient Tobacco Use Status: Former Tobacco user Tobacco use type: Cigarette Years Smoked: 50 +/- Review of Systems Const Denies chills, Denies fatigue, Denies fever(s), Denies frequent falls, Denies weakness, Denies weight gain and Denies weight loss ENT Denies dizziness Card Denies chest pain, Denies leg edema, Denies lightheadedness, Denies palpitations, Denies dyspnea and Denies dyspnea on exertion Resp Denies cough, Denies dyspnea and Denies dyspnea on exertion GI Denies hematochezia Musc Denies abnormal gait, Denies muscle weakness, Denies numbness, Denies radiating pain into limb and Denies tingling Neuro Denies abnormal gait, Denies dizziness, Denies frequent falls, Denies numbness, Denies tingling and Denies weakness Endo Denies fatigue and Denies palpitations Physical Exam Vital Signs: Last Vital Signs Pulse 63 08/29/24 11:15 BP 120/64 08/29/24 11:15 BMI result Body Mass Index 37.1 GENERAL APPEARANCE: in no acute distress, well developed, well nourished. NECK/THYROID: no carotid bruit, no jugular venous distention. SKIN: no suspicious lesions, warm and dry. HEART: no murmurs, regular rate and rhythm, S1, S2 normal. LUNGS: clear to auscultation bilaterally. ABDOMEN: normal, bowel sounds present, soft, nontender, nondistended. EXTREMITIES: no edema. PERIPHERAL PULSES: equal. NEUROLOGIC: nonfocal, alert and oriented. Office Procedures EKG Details: Sinus rhythm 63 beats per minute, normal axis, nonspecific T-wave changes, QTC 435 milliseconds. [id number], Complete Assessment & Plan Assessment & Plan (1) Essential hypertension: Code(s): I10 - Essential (primary) hypertension Category: Medical (2) Hyperlipidemia: Code(s): E78.5 - Hyperlipidemia, unspecified Category: Medical Qualifiers: Hyperlipidemia type: unspecified Qualified Code(s): E78.5 - Hyperlipidemia, unspecified Plan Pleasant 74 year gentleman who is here for follow-up. He has known history of hypertension. Blood pressure control is good. He had 1 episode of chest discomfort or 15 minutes while laying in bed few months ago. He has not had any further discomfort in his chest with activity in particular. I have advised him that if he gets any significant chest discomfort then he should reach out to us. Otherwise he will follow up with us in a year. Thank you for allowing me to participate in the care of your patient. Please feel free to contact me if you have any questions. Coding Level of Care Code Est Pt Level 3 (11799) Diagnoses Essential hypertension I10 Hyperlipidemia, unspecified hyperlipidemia type E78.5 Hyperlipidemia type: unspecified CPT Codes EKG - CPT: 17570-[id number], Complete ([id number])
== END 2024-08-29 11:49 | disposition home or self-care (01) ==
PROVIDERS: PCP Internal Medicine; Visit Provider Internal Medicine Cardiovascular Disease
DX: I10 Essential (primary) hypertension (principal); E78.5 Hyperlipidemia, unspecified
CPT/HCPCS: 93010; 99213

== ENCOUNTER → 2024-08-29 11:05 | Outpatient (BNVA) | payer MEDICARE, SELFPAY | PROVIDERS: PCP Internal Medicine; Visit Provider Internal Medicine Cardiovascular Disease | DX: I10 Essential (primary) hypertension (principal); E78.5 Hyperlipidemia, unspecified | CPT/HCPCS: 93005; 99212 ==

== ENCOUNTER 2024-11-01 14:46 | Outpatient (AMB) | payer MEDICARE, SELFPAY ==
[2024-11-01 14:47] VITALS: BP 130/80; PULSE 70; RESP 16; TEMP 36.8; O2SAT 97; BMI 36.2
--- NOTE | 2024-11-01 14:47 | MHC.PC.OV ---
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 Required: No Accompanied by: Self / Same As Patient Allergies No Known Allergies Allergy (Verified 11/06/24 09:21) Medication List - Last Reconciled 11/06/24 by Rosalino Garg MD atorvastatin 80 mg PO DAILY blood pressure monitor As directed cholecalciferol (vitamin D3) 50 mcg PO DAILY hydrochlorothiazide 25 mg PO DAILY 90 days metformin 1,000 mg (2 x 500 mg) PO BID 90 days Tobacco use date assessed: 11/01/24 Fall risk assessment: No Falls in past year Last assessed Fall Risk: 11/01/24 Dental Screening Dental Screen Date: 11/01/24 Did you have a dental visit in the last 12 months?: No Did you have a dental problem in the last 6 months where you did not have access to dental care?: No Was dental information given to patient?: No (Patient has dentures) HPI follow up HPI Details 74-year-old male presents to the office to discuss his chronic medical conditions. Compliant with medications and reporting no side effects. Able to function and do all activities of daily living. [facility] Medical History (Updated 11/06/24 @ 09:24 by Rosalino Garg MD) Obesity (BMI 30-39.9) Diabetes Sleep apnea HTN (hypertension) RBBB GERD (gastroesophageal reflux disease) Elevated cholesterol Prostate cancer Graves disease Shingles Weakness Surgical History History of total right knee replacement History of total left knee replacement History of surgery on lower extremity H/O colonoscopy (~08/18/23) History of neck surgery Hx of umbilical hernia repair Hx of hand surgery Family History Father Colon cancer Mother CVD (cardiovascular disease) Brother Cancer Social History Housing: House Alcohol intake: current Alcohol intake frequency: a few times a week Patient Tobacco Use Status: Former Tobacco user Tobacco use type: Cigarette Years Smoked: 50 +/- service: No Current occupational status: retired Cognitive needs: No Hearing needs: No Vision needs: Yes (rx glasses) Questionnaire PHQ-9 Over the last 2 weeks, how often have you been bothered by any of the following problems? 1. Little interest or pleasure in doing things: not at all 2. Feeling down, depressed, or hopeless: not at all 3. Trouble falling or staying asleep, or sleeping too much: not at all 4. Feeling tired or having little energy: not at all 5. Poor appetite or overeating: not at all 6. Feeling bad about yourself - or that you are a failure or have let yourself or your family down: not at all 7. Trouble concentrating on things, such as reading the newspaper or watching television: not at all 8. Moving or speaking so slowly that other people could have noticed. Or the opposite - being so fidgety or restless that you have been moving around a lot more than usual: not at all 9. Thoughts that you would be better off or of hurting yourself in some way: not at all Total score: 0 Depression Screening Interpretation: Negative Depression Screening Done: Yes Source: Developed by Drs. Alex Perdue, Mimi Swain, Yannick Ulloa and colleagues, with an educational antwan from [employer]. Thrive Questionnaire Date Thrive assessed: 11/01/24 I am a: Patient What is your living situation today?: I have a steady place to live Within the past 12 months, did the food you bought not last and you didn't have the money to get more?: Never true Within the past 12 months, did you worry whether your food would run out before you got money to buy more?: Never true Do you have trouble paying for medicines?: No Do you have trouble getting transportation to medical appointments?: No Do you have trouble paying your heating and electricity bill?: No Do you have trouble taking care of your child, family member or friend?: No Do you have trouble with day-to-day activities such as bathing, preparing meals, shopping, managing finances, etc.?: No Are you currently unemployed and looking for a job?: No Are you interested in more education?: No Please select the resources that you would like help with: None Currently or been in a relationship where the following occur: No concerns reported THRIVE Score: 0 AUDIT C Alcohol Use Questionnaire (AUDIT-C) 1. How often do you have a drink containing alcohol?: 4 or more times a week 2. How many drinks containing alcohol do you have on a typical day when you are drinking?: 1 or 2 3. How often do you have six or more drinks on one occasion?: Never Total Score: 4 FLORA-7 AMB Questionnaire FLORA-7 Date FLORA - 7 assessed: 11/01/24 Feeling nervous, anxious, or on edge: 0 = Not at all Not being able to stop or control worryin = Not at all Worrying too much about different things: 0 = Not at all Trouble relaxin = Not at all Being so restless that it is hard to sit still: 0 = Not at all Becoming easily annoyed or irritable: 0 = Not at all Feeling afraid as if something awful might happen: 0 = Not at all Total FLORA-7 score (0-4 normal; 5-9 mild; 10-14 moderate; 15-21 severe): 0 Source: Developed by Drs. Alex Perdue, Mimi Swain, Yannick Ulloa and colleagues, with an educational antwan from [employer]. Physical exam (Primary Care) Vital Signs: Last Vital Signs Temp 98.2 F 11/01/24 14:47 Pulse 70 11/01/24 14:47 Resp 16 11/01/24 14:47 BP 130/80 11/01/24 14:47 Pulse Ox 97 11/01/24 14:47 Oxygen Delivery Method Room Air 11/01/24 14:47 Care Plan Goal for BP management: Blood pressure is in range. BMI result Body Mass Index 36.2 BMI Assessment/Plan discussion: High (1 lb per week weight loss suggested.) BMI High, discussed plan: lifestyle, weight reduction and dietary Tobacco/Smoking Status: Tobacco use Status Tobacco use date assessed 11/01/24 11/01/24 14:57 Patient Tobacco Use Status Former Tobacco user 11/01/24 14:57 Tobacco use type Cigarette 11/01/24 14:57 PHQ-9: PHQ-9 Score PHQ-9: Total score 0 11/01/24 15:05 Depression Screening Interpretation: Negative Thrive Assessment: Date of Thrive Assessment Date Thrive assessed 11/01/24 11/01/24 14:57 Currently or been in a relationship where the following occur: No concerns reported Advance Care Planning discussion: Exists, not on file Date of discussion: 11/01/24 Who was present: Patient Forms completed: Health Care Proxy Actual minutes spent: 5 Const General: cooperative and healthy appearing Nutritional Appearance: well nourished Orientation/consciousness: patient oriented x3 Limitations: no limitations HENMT Head: Yes normal to inspection Eyes General: appearance normal, both eyes and all related structures Neck Neck: Yes normal visual inspection Chest Chest palpation & inspection: normal palpation of entire chest wall Resp Effort & Inspection: normal respiratory effort Neuro General: patient oriented x3 Coding Level of Care Code New Pt Level 4 (69698) Complex EM visit Add On G2211 Diagnoses Diabetes E11.9 Obesity (BMI 30-39.9) E66.9 Essential hypertension I10 Additional Codes Vital Signs *Quality* - Advance Care Planning discussion: Exists, not on file ([id number]) Assessment & Plan Assessment & Plan (1) Diabetes: Comment: type 2-taking metformin Code(s): E11.9 - Type 2 diabetes mellitus without complications Category: Medical Plan: Blood work ordered. Will call with results. Continue taking medications. (2) Obesity (BMI 30-39.9): Code(s): E66.9 - Obesity, unspecified Category: Medical Plan: Counseling on the importance of diet and exercise done. (3) Essential hypertension: Code(s): I10 - Essential (primary) hypertension Category: Medical Plan: Blood pressure is stable. Continue medications. Orders: Orders Liver Panel 11/02/24 E11.9 - Type 2 diabetes mellitus without complications Hemoglobin A1c 11/02/24 E11.9 - Type 2 diabetes mellitus without complications Microalbumin, Random (w Creat) 11/02/24 E11.9 - Type 2 diabetes mellitus without complications UA and rflx microscopic 11/02/24 E11.9 - Type 2 diabetes mellitus without complications Complete Blood Count no Diff 11/02/24 E11.9 - Type 2 diabetes mellitus without complications Basic Metabolic Panel 11/02/24 E11.9 - Type 2 diabetes mellitus without complications Lipid Panel 11/02/24 E11.9 - Type 2 diabetes mellitus without complications Thyroid Stimulating Hormone 11/02/24 E11.9 - Type 2 diabetes mellitus without complications
== END 2024-11-01 15:18 | disposition home or self-care (01) ==
LOC: HO.HMCSH 14:46
PROVIDERS: PCP Internal Medicine; Visit Provider Internal Medicine
DX: E11.9 Type 2 diabetes mellitus without complications (principal); E66.9 Obesity, unspecified; I10 Essential (primary) hypertension; Z00.00 Encounter for general adult medical examination without abnormal findings

== ENCOUNTER → 2024-11-01 14:46 | Outpatient (BNVA) | payer MEDICARE, SELFPAY | PROVIDERS: PCP Internal Medicine; Visit Provider Internal Medicine | DX: E11.9 Type 2 diabetes mellitus without complications (principal); I10 Essential (primary) hypertension; E66.9 Obesity, unspecified | CPT/HCPCS: 99202 ==

== ENCOUNTER 2024-11-02 10:28 | Outpatient (REF) | payer MEDICARE, SELFPAY ==
[2024-11-02 13:21] LABS: Hematocrit 39.9 % (42.0-52.0); Hemoglobin 13.9 g/dl (14.0-18.0); Mean Corpuscular HGB Conc 34.8 g/dl (31.0-36.0); Mean Corpuscular Hemoglobin 30.7 pg (27.0-33.0); Mean Corpuscular Volume 88.1 fL (80.0-98.0); Mean Platelet Volume 9.8 fL (9.4-12.4); Platelet Count 324 X10*3/uL (160-400); Red Blood Count 4.53 X10*6/uL (4.60-5.80); Red Cell Distribution Width 12.5 % (11.0-16.0); White Blood Count 9.5 X10*3/uL (4.8-10.8)
[2024-11-02 13:23] LABS: Appearance Urine Turbid; Color Urine Dark Yellow; Glucose Urine UA Negative (Negative); Leukocyte Esterase Urine Negative (Negative); Nitrite Urine Negative (Negative); PH 5.5 (5.0-9.0); Specific Gravity - Urine 1.025 (1.005-1.025); UMIC TRIGGER UA YES; Urine Blood Trace (Negative); Urine Ketones Trace mg/dL (Negative); Urine Protein Trace mg/dL (Neg-Trace)
[2024-11-02 13:32] LABS: Bacteria Urine None Seen (None Seen); Hyaline Casts Urine 0-2 /LPF (0-2); RBC Urine 0-2 /HPF (0-2); Squamous Epithelial Cell Urine 0-2 /HPF (0-2); WBC Urine 0-5 /HPF (0-5)
[2024-11-02 13:33] LABS: Estimated Average Glucose 163 mg/dL; Hemoglobin A1c % 7.3 % (<6.0); Total Hemoglobin (HGBA1C) 3583.3246 umol/L
[2024-11-02 13:58] LABS: Alanine Aminotransferase 16 U/L (0-40); Albumin Level 3.7 g/dL (3.5-5.0); Alkaline Phosphatase 120 U/L (39-117); Anion Gap 13 (12-20); Aspartate Amino Transferase 21 U/L (5-37); Bilirubin Direct 0.2 mg/dL (0.0-0.5); Bilirubin Total 0.5 mg/dL (0.0-1.0); Blood Urea Nitrogen 22 mg/dL (9-16); Calcium 9.4 mg/dL (8.4-10.2); Carbon Dioxide 26 mmol/L (22-29); Chloride 107 mmol/L (96-108); Cholesterol 142 mg/dL (<200); Estimated Glomerular Filt Rate > 60; Glucose Random 167 mg/dL (60-115); HDL Cholesterol 49 mg/dL (>40); LDL Cholesterol Calculated 70 mg/dL (<100); Potassium 4.7 mmol/L (3.3-5.1); Sodium 141 mmol/L (135-145); Total Protein 6.8 g/dL (6.5-8.0); Triglycerides 116 mg/dL (<150)
[2024-11-02 14:05] LABS: Thyroid Stimulating Hormone 1.08 uIU/mL (0.32-4.0)
[2024-11-02 14:11] LABS: Creatinine Urine 271.64 mg/dL; Microalbum/Creatinine Ratio Ur 10.6 ug/mg cr (<30)
== END 2024-11-02 10:29 | disposition home or self-care (01) ==
LOC: HO.HMGCLDS 10:28
PROVIDERS: PCP Internal Medicine; Visit Provider Internal Medicine
DX: E11.9 Type 2 diabetes mellitus without complications (principal)
CPT/HCPCS: 36415; 80048; 80061; 80076; 81001; 82043; 82570; 83036; 84443; 85027

== ENCOUNTER 2024-11-15 10:40 | Outpatient (AMB) | payer MEDICARE, SELFPAY ==
[2024-11-15 10:42] VITALS: BP 110/60; PULSE 58; O2SAT 99; BMI 36.3
--- NOTE | 2024-11-15 10:42 | A.OFFVIS_ITS ---
Vital Signs 3 11/15/24 10:42 Height 5 ft 7 in Weight 232 lb BMI 36.3 BP 110/60 Blood Pressure Location Rt brachial Position Sitting Pulse 58 Pulse Source Pulse Oximeter Pulse Oximetry (%) 99 Oxygen Delivery Method Room Air Intake Visit Reasons: Follow up Sleep Delivery Helper Required: No Accompanied by: Self / Same As Patient Allergies No Known Allergies Allergy (Verified 11/15/24 10:45) HPI Comments Details: 74 y/o male patient comes for follow up of EDMAR on CPAP. He is being f/b cardiology for an episode of chest pain- workup has been reassuring. He notes he had a fall about 5-6 weeks ago- fell backwards while pushing plywood up into the ceiling- has had lower spine pain since- this improving. Denies pain/tingling/weakness in his legs. He states he is scheduled to have a left shoulder replacement. He states he underwent a right TKR last Mar 2024, and underwent a c-spine spine surgery last year as well. Patient states his memory is generally good. 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 Him and his enjoy traveling by a camper- [place] 45 [place], this year they plan to do a 60 day trip through [facility]. Pt reports he is using his CPAP regularly. Rarely, he misses using the CPAP if he is dry camping thus cannot plug in the CPAP. Usually sleeps well with CPAP. He states that he was feeling that a hair or a bug was in his mask, so he places a tissue in the mask when not in use to prvenet anything from crawling into the mask. If he sleeps on his back, the mask may leak some. He does need to keep his mask straps tight. He is cleaning his CPAP supplies regularly. He does use distilled water in his CPAP reservoir. He states he had been trying to extend his CPAP mask, but more recently trying to change it when due. The CPAP compliance and therapy response reviewed 08/17/2024 - 11/14/2024 He is on CPAP at 8cmH2O w/ EPR 2 Overall usage 100% Usage > 4 hrs 100% Average usage days used 7 hours 21 minutes Average leaks 4.5lpm Residual AHI was 1.4/ hr. [facility] Medical History (Updated 11/15/24 @ 16:44 by EUSEBIA Alvarez) Obesity (BMI 30-39.9) Diabetes Sleep apnea HTN (hypertension) RBBB GERD (gastroesophageal reflux disease) Elevated cholesterol Prostate cancer Graves disease Shingles Weakness Surgical History History of total right knee replacement History of total left knee replacement History of surgery on lower extremity H/O colonoscopy (~08/18/23) History of neck surgery Hx of umbilical hernia repair Hx of hand surgery Family History Father Colon cancer Mother CVD (cardiovascular disease) Brother Cancer Social History Housing: House Alcohol intake: current Alcohol intake frequency: a few times a week Patient Tobacco Use Status: Former Tobacco user Tobacco use type: Cigarette Years Smoked: 50 +/- service: No Current occupational status: retired Cognitive needs: No Hearing needs: No Vision needs: Yes (rx glasses) Physical Exam Vital Signs: Last Vital Signs Pulse 58 11/15/24 10:42 BP 110/60 11/15/24 10:42 Pulse Ox 99 11/15/24 10:42 Oxygen Delivery Method Room Air 11/15/24 10:42 BMI result Body Mass Index 36.3 Const General: no acute distress Resp Effort & Inspection: normal respiratory effort and able to speak in complete sentences Neuro Other: A&O x's 3 w/ mild word finding difficulties. Mild intermittent head tremor. No palpable low back pain. Bilateral patellat DRTs 2+ BLE MS 5/5 Antalgic gait- pt states this is his baseline. Psych Mental Status: mental status grossly normal Speech and movement: Clear speech present Attitude: cooperative Results Reviewed Results Reviewed: Assessment & Plan Assessment & Plan (1) Obstructive sleep apnea: Code(s): G47.33 - Obstructive sleep apnea (adult) (pediatric) Category: Medical (2) Low back pain: Code(s): M54.50 - Low back pain, unspecified Category: Medical Plan For EDMAR: Continue CPAP 8 cmH2O w/ EPR 2 nightly > 4 hours, as pt continues to have good clinical effect from use. Clean CPAP machine and supplies routinely. Change CPAP supplies routinely- this may help PAP mask maintain its seal better. Use distilled water in CPAP water reservoir. Pt to contact us or respiratory company with any questions or concerns. For low back/sacral pain s/p mechanical fall: Advised to f/u w/ PCP or us if pain s/s worsen. Fr word finding difficulties: Pt denies any significant cognitive difficulties. Will monitor. Pt to follow-up in 12 months or sooner prn. Coding Level of Care Code Est Pt Level 3 (54308) Diagnoses Obstructive sleep apnea G47.33 Low back pain M54.50
== END 2024-11-15 11:23 | disposition home or self-care (01) ==
LOC: HO.HSMS 10:41
PROVIDERS: PCP Internal Medicine; Visit Provider Nurse Practitioner Family
DX: G47.33 Obstructive sleep apnea (adult) (pediatric) (principal); M54.50 Low back pain, unspecified
CPT/HCPCS: 99213

== ENCOUNTER → 2024-11-15 10:40 | Outpatient (BNVA) | payer MEDICARE, SELFPAY | PROVIDERS: PCP Internal Medicine; Visit Provider Nurse Practitioner Family | DX: G47.33 Obstructive sleep apnea (adult) (pediatric) (principal); M54.50 Low back pain, unspecified; Z99.89 Dependence on other enabling machines and devices | CPT/HCPCS: 99212 ==

== ENCOUNTER 2024-12-29 09:05 | Outpatient (AMB) | payer MEDICARE, SELFPAY ==
[2024-12-29 09:10] VITALS: BP 120/56; PULSE 68; RESP 16; TEMP 36.2; O2SAT 98; BMI 36.3
--- NOTE | 2024-12-29 09:10 | MHC.PC.OV ---
Vital Signs 12/29/24 09:10 Height 5 ft 7 in Weight 232 lb BMI 36.3 BP 120/56 L Respiration 16 Pulse 68 Pulse Source Pulse Oximeter Temp 97.2 F Temp Source Temporal Artery Scan Pulse Oximetry (%) 98 Oxygen Delivery Method Room Air Intake Visit Reasons: persistent, intermittent, diarrhea Check Examiner Required: No Accompanied by: Self / Same As Patient Allergies No Known Allergies Allergy (Verified 12/29/24 09:36) Medication List - Last Reconciled 12/29/24 by Whit New PA-C atorvastatin 80 mg PO DAILY blood pressure monitor As directed cholecalciferol (vitamin D3) 50 mcg PO DAILY hydrochlorothiazide 25 mg PO DAILY 90 days metformin 1,000 mg (2 x 500 mg) PO BID 90 days Tobacco use date assessed: 12/29/24 Dental Screening Dental Screen Date: 11/01/24 HPI persistent, intermittent, diarrhea HPI Details The patient is a 74-year-old male presenting with diarrhea. The diarrhea occurs almost every time he has a bowel movement, typically once a day, and is described as very loose but not completely watery. There is no presence of blood, mucus, or abnormal coloration in the stool. The patient has a history of Diabetes Mellitus Type 2 and has been on metformin, with recent adjustments in dosing leading to gastrointestinal upset. He was initially on 500 mg once daily, increased to 2000 mg daily, which he believes contributed to his diarrhea. He has since reduced the dosage to 1000 mg daily, which has not completely resolved the diarrhea. The patient reports shoulder pain, with a history of numbness extending from the shoulder to the fingertips. He is considering shoulder surgery after February, with uncertainty about which shoulder to prioritize due to alternating pain severity. The patient has a history of prostate cancer but denies any family history of pancreatic cancer. Social History - The patient enjoys traveling with his in an , indicating a level of physical activity and social engagement. [facility] Medical History (Updated 12/29/24 @ 10:39 by Whit New PA-C) History of prostate cancer Left shoulder pain Type 2 diabetes mellitus with hemoglobin A1c goal of less than 7.0% LUQ abdominal pain Diarrhea Obesity (BMI 30-39.9) Diabetes Sleep apnea HTN (hypertension) RBBB GERD (gastroesophageal reflux disease) Elevated cholesterol Prostate cancer Graves disease Shingles Weakness Surgical History History of total right knee replacement History of total left knee replacement History of surgery on lower extremity H/O colonoscopy (~08/18/23) History of neck surgery Hx of umbilical hernia repair Hx of hand surgery Family History Father Colon cancer Mother CVD (cardiovascular disease) Brother Cancer Social History Housing: House Alcohol intake: current Alcohol intake frequency: a few times a week Patient Tobacco Use Status: Former Tobacco user Tobacco use type: Cigarette Years Smoked: 50 +/- service: No Current occupational status: retired Cognitive needs: No Hearing needs: No Vision needs: Yes (rx glasses) Questionnaire PHQ-9 Over the last 2 weeks, how often have you been bothered by any of the following problems? 1. Little interest or pleasure in doing things: not at all 2. Feeling down, depressed, or hopeless: not at all 3. Trouble falling or staying asleep, or sleeping too much: not at all 4. Feeling tired or having little energy: not at all 5. Poor appetite or overeating: not at all 6. Feeling bad about yourself - or that you are a failure or have let yourself or your family down: not at all 7. Trouble concentrating on things, such as reading the newspaper or watching television: not at all 8. Moving or speaking so slowly that other people could have noticed. Or the opposite - being so fidgety or restless that you have been moving around a lot more than usual: not at all 9. Thoughts that you would be better off or of hurting yourself in some way: not at all Total score: 0 Depression Screening Interpretation: Negative Depression Screening Done: Yes 79557 - PHQ-9 Billing: Yes Source: Developed by Drs. Alex Perdue, Mimi Swain, Yannick Ulloa and colleagues, with an educational antwan from [employer]. Thrive Questionnaire Date Thrive assessed: 11/01/24 I am a: Patient What is your living situation today?: I have a steady place to live Within the past 12 months, did the food you bought not last and you didn't have the money to get more?: Never true Within the past 12 months, did you worry whether your food would run out before you got money to buy more?: Never true Do you have trouble paying for medicines?: No Do you have trouble getting transportation to medical appointments?: No Do you have trouble paying your heating and electricity bill?: No Do you have trouble taking care of your child, family member or friend?: No Do you have trouble with day-to-day activities such as bathing, preparing meals, shopping, managing finances, etc.?: No Are you currently unemployed and looking for a job?: No Are you interested in more education?: No Please select the resources that you would like help with: None Currently or been in a relationship where the following occur: No concerns reported THRIVE Score: 0 AUDIT C Alcohol Use Questionnaire (AUDIT-C) 1. How often do you have a drink containing alcohol?: 4 or more times a week 2. How many drinks containing alcohol do you have on a typical day when you are drinking?: 1 or 2 3. How often do you have six or more drinks on one occasion?: Never Total Score: 4 Score Reviewed/Action Taken: No FLORA-7 AMB Questionnaire FLORA-7 Date FLORA - 7 assessed: 11/01/24 Feeling nervous, anxious, or on edge: 0 = Not at all Not being able to stop or control worryin = Not at all Worrying too much about different things: 0 = Not at all Trouble relaxin = Not at all Being so restless that it is hard to sit still: 0 = Not at all Becoming easily annoyed or irritable: 0 = Not at all Feeling afraid as if something awful might happen: 0 = Not at all Total FLORA-7 score (0-4 normal; 5-9 mild; 10-14 moderate; 15-21 severe): 0 Source: Developed by Drs. Alex Perdue, Mimi Swain, Yannick Ulloa and colleagues, with an educational antwan from [employer]. FLORA-7 Assessment Billing FLORA-7 Assessment Tool: FLORA-7 Assessment 58324 Review of Systems Const Details: - Gastrointestinal: Reports diarrhea almost every time he has a bowel movement, denies blood, mucus, or abnormal coloration in stool. - Abdominal: Denies abdominal pain, nausea, or vomiting. - Genitourinary: Denies abnormal urine or penile discharge. - Neurological: Reports shoulder pain with numbness extending to fingertips. Physical exam (Primary Care) Vital Signs: Last Vital Signs Temp 97.2 F 12/29/24 09:10 Pulse 68 12/29/24 09:10 Resp 16 12/29/24 09:10 BP 120/56 L 12/29/24 09:10 Pulse Ox 98 12/29/24 09:10 Oxygen Delivery Method Room Air 12/29/24 09:10 Care Plan Goal for BP management: <140/90 at Goal BMI result Body Mass Index 36.3 BMI Assessment/Plan discussion: High BMI High, discussed plan: lifestyle, weight reduction, dietary, physical activity and alcohol moderation Tobacco/Smoking Status: Tobacco use Status Tobacco use date assessed 12/29/24 12/29/24 09:20 Patient Tobacco Use Status Former Tobacco user 12/29/24 09:20 Tobacco use type Cigarette 12/29/24 09:20 PHQ-9: PHQ-9 Score PHQ-9: Total score 0 12/29/24 09:37 Depression Screening Interpretation: Negative Thrive Assessment: Date of Thrive Assessment Date Thrive assessed 11/01/24 12/29/24 09:20 Currently or been in a relationship where the following occur: No concerns reported Const Other: Appearance: Alert. Oriented X3. No acute distress. Head: Normal external exam. Normocephalic. Atraumatic. Eyes: Pupils are equal, round, and reactive to light. Extraocular movements intact. Conjunctiva and sclera normal. Eyelids normal. Throat: Pharynx normal. Uvula midline. Moist mucous membranes. Neck: Normal inspection. Neck supple. Full range of motion. Cardiovascular: Normal heart rate and rhythm. Heart sound normal. No murmurs noted. Pulses normal throughout. Respiratory: No respiratory distress. Painless inspiration. Breath sounds normal. No wheezes/rales/rhonchi noted. Chest nontender. No accessory muscle usage noted or decreased air movement noted. Abdomen: Soft and nontender. Bowel sounds normal in all 4 quadrants. No distention noted. No organomegaly noted. No visible injury noted. Slight pressure pain noted in the left upper quadrant upon palpation. Back: No costovertebral angle tenderness. Full range of motion noted. Skin: Skin warm and dry. Normal skin color. Normal skin turgor. No rashes/lesions/lacerations noted. Extremities: No lower extremity edema. Extremities exhibit normal range of motion. Extremities nontender. Neuro: Oriented X 3. No motor deficit. No sensory deficit. Reflexes normal. Results AMB Hemoglobin A1c AMB Hemoglobin A1c 6.9 % Last Edit by BELINDA Willis on 12/29/24 09:52 Coding Level of Care Code Est Pt Level 4 (06694) Complex EM visit Add On G2211 Diagnoses Diarrhea R19.7 LUQ abdominal pain R10.12 Type 2 diabetes mellitus with hemoglobin A1c goal of less than 7.0% E11.9 Left shoulder pain M25.512 History of prostate cancer Z85.46 Additional Codes PHQ-9 - 24234 - PHQ-9 Billing: Yes ([id number]) FLORA-7 Assessment Billing - FLORA-7 Assessment Tool: FLORA-7 Assessment 26343 ([id number]) Assessment & Plan Assessment & Plan (1) Diarrhea: Code(s): R19.7 - Diarrhea, unspecified Category: Medical Plan: The patient is experiencing diarrhea, likely related to metformin use. The plan includes switching to metformin extended release 500 mg twice daily to reduce gastrointestinal side effects. A stool sample will be collected to test for H. pylori infection and C diff, and a CT scan of the abdomen will be performed to rule out other causes. Patient reports some pressure and left upper quadrant although abdomen is soft and nontender. Condition is chronic and stable continue to monitor (2) LUQ abdominal pain: Code(s): R10.12 - Left upper quadrant pain Category: Medical Plan: The patient is experiencing diarrhea, likely related to metformin use. The plan includes switching to metformin extended release 500 mg twice daily to reduce gastrointestinal side effects. A stool sample will be collected to test for H. pylori infection and C diff, and a CT scan of the abdomen will be performed to rule out other causes. Patient reports some pressure and left upper quadrant although abdomen is soft and nontender. Condition is chronic and stable continue to monitor (3) Type 2 diabetes mellitus with hemoglobin A1c goal of less than 7.0%: Code(s): E11.9 - Type 2 diabetes mellitus without complications Category: Medical Plan: The patient's diabetes management will be adjusted by adding Januvia to the regimen to help maintain glycemic control without exacerbating gastrointestinal symptoms. Will continue the metformin although will reduce to 500 mg b.i.d. extended release instead of 1000 mg immediate release metformin b.i.d.. The patient's A1c level is currently 6.9%, indicating good control, but monitoring will continue. Condition is chronic and stable will continue to monitor. (4) Left shoulder pain: Code(s): M25.512 - Pain in left shoulder Category: Medical Plan: The patient reports shoulder pain with a history of numbness, and is considering surgical intervention after February. The decision on which shoulder to prioritize for surgery remains pending due to alternating pain severity. Condition is chronic and stable will continue to monitor. (5) History of prostate cancer: Code(s): Z85.46 - Personal history of malignant neoplasm of prostate Category: Medical Plan: The patient has a history of prostate cancer, with no current symptoms or family history of pancreatic cancer. Condition is chronic and stable will continue to monitor. Plan Plan Patient was informed and verbally consented to the use of an ambient scribe for clinic note documentation during this visit. 1. Diarrhea The patient is experiencing diarrhea, likely related to metformin use. The plan includes switching to metformin extended release 500 mg twice daily to reduce gastrointestinal side effects. A stool sample will be collected to test for H. pylori infection, and a CT scan of the abdomen will be performed to rule out other causes. 2. Diabetes Mellitus Type 2 The patient's diabetes management will be adjusted by adding Januvia to the regimen to help maintain glycemic control without exacerbating gastrointestinal symptoms. The patient's A1c level is currently 6.9%, indicating good control, but monitoring will continue. 3. Shoulder Pain The patient reports shoulder pain with a history of numbness, and is considering surgical intervention after February. The decision on which shoulder to prioritize for surgery remains pending due to alternating pain severity. 4. History Of Prostate Cancer The patient has a history of prostate cancer, with no current symptoms or family history of pancreatic cancer. I discussed with the patient the likelihood that his diarrhea is related to metformin use and proposed switching to an extended-release formulation to minimize gastrointestinal side effects. We also discussed adding Januvia to his diabetes management plan to maintain glycemic control without exacerbating symptoms. I recommended a CT scan of the abdomen and a stool sample to rule out other causes of diarrhea, such as infection. The patient was informed about the potential need for shoulder surgery and advised to decide which shoulder to prioritize based on pain severity. Orders: Orders AMB Hemoglobin A1c Today E11.9 - Type 2 diabetes mellitus without complications Comprehensive Met. Panel Today Z00.00 - Encounter for general adult medical examination without abnormal findings Vitamin B12 and Folate Today Z00.00 - Encounter for general adult medical examination without abnormal findings Liver Panel Today Z00.00 - Encounter for general adult medical examination without abnormal findings H pylori Ag Stool Today R10.12 - Left upper quadrant pain, R19.7 - Diarrhea, unspecified CT abdomen pelvis w IV con Today R10.12 - Left upper quadrant pain, R19.7 - Diarrhea, unspecified Complete Blood Count Auto Diff Today Z00.00 - Encounter for general adult medical examination without abnormal findings Magnesium Today Z00.00 - Encounter for general adult medical examination without abnormal findings CDiff Gene PCR Today R10.9 - Unspecified abdominal pain Medications: New sitagliptin phosphate (Januvia) 25 mg PO DAILY 90 tabs 1RF E11.9 - Type 2 diabetes mellitus without complications metformin ER 500 mg PO BID 90 days 180 tabs 1RF Discontinued metformin 2 tablets by mouth with a meal twice daily Discontinued Reason: Doctor's Order 1,000 mg (2 x 500 mg) PO BID 90 days 360 tabs 1RF Patient Instructions: - Take metformin extended release 500 mg in the morning and at night. - Start Januvia as prescribed, once daily. - Complete the stool sample test as instructed. - Schedule and complete the CT scan of the abdomen as directed. - Follow up in three months or sooner if symptoms persist or worsen.
== END 2024-12-29 10:05 | disposition home or self-care (01) ==
LOC: HO.HMCSH 09:05
PROVIDERS: PCP Internal Medicine; Visit Provider Physician Assistant Medical
DX: R19.7 Diarrhea, unspecified (principal); R10.12 Left upper quadrant pain; E11.9 Type 2 diabetes mellitus without complications; M25.512 Pain in left shoulder; Z85.46 Personal history of malignant neoplasm of prostate

== ENCOUNTER → 2024-12-29 09:05 | Outpatient (BNVA) | payer MEDICARE, SELFPAY | PROVIDERS: PCP Internal Medicine; Visit Provider Physician Assistant Medical | DX: R19.7 Diarrhea, unspecified (principal); R10.12 Left upper quadrant pain; E11.9 Type 2 diabetes mellitus without complications; M25.512 Pain in left shoulder; Z85.46 Personal history of malignant neoplasm of prostate | CPT/HCPCS: 83036; 96127; 99212 ==

== ENCOUNTER 2025-02-14 11:04 | Outpatient (AMB) | payer MEDICARE, SELFPAY ==
--- NOTE | 2025-02-14 11:06 | MHC.PC.OV ---
Vital Signs 02/14/25 11:07 02/15/25 12:01 Height 5 ft 7 in Weight 235 lb 4 oz BMI 36.8 BP 140/64 H 132/62 Blood Pressure Location Rt brachial Lt brachial Position Sitting Sitting Respiration 16 Pulse 62 Pulse Source Pulse Oximeter Temp 98 F Temp Source Temporal Artery Scan Pulse Oximetry (%) 96 Oxygen Delivery Method Room Air Intake Visit Reasons: Orthopedic pre op Sports Commentator Required: No Accompanied by: Self / Same As Patient Allergies No Known Allergies Allergy (Verified 02/15/25 12:01) Medication List - Last Reconciled 02/15/25 by Whit New PA-C atorvastatin 80 mg PO DAILY blood pressure monitor As directed cholecalciferol (vitamin D3) 50 mcg PO DAILY hydrochlorothiazide 25 mg PO DAILY 90 days metformin ER 500 mg PO BID 90 days sitagliptin phosphate (Januvia) 25 mg PO DAILY Tobacco use date assessed: 12/29/24 Fall risk assessment: No Falls in past year Last assessed Fall Risk: 02/14/25 Dental Screening Dental Screen Date: 11/01/24 Did you have a dental visit in the last 12 months?: Yes Did you have a dental problem in the last 6 months where you did not have access to dental care?: No Was dental information given to patient?: Patient has dentist HPI Orthopedic pre op HPI Details The patient is a 74-year-old male presenting for a preoperative evaluation for left shoulder surgery. The surgery is scheduled for March 09 and will be performed by Dr. Mayra Solano at [facility]. The patient has a history of hypertension, currently managed with hydrochlorothiazide 25 mg daily. His blood pressure was recorded at 132/62 mmHg during the visit. Well controlled. The patient is also diagnosed with Type 2 Diabetes Mellitus, for which he is taking metformin extended release 500 mg p.o. b.i.d. and Januvia 25 mg. His last A1c was 6.9% on December 29, 2024. Well controlled. He has a history of vitamin D deficiency, managed with vitamin D supplements. Previously, the patient experienced diarrhea, which has since resolved. A CAT scan was ordered although patient reports diarrhea resolved therefore CT scan canceled today. Patient has not done the stool sample due to diarrhea has improved. Socia History [facility] Medical History (Updated 02/15/25 @ 12:46 by Whit New PA-C) Preventative health care Chronic left shoulder pain Vitamin D deficiency Preoperative clearance Pre-op evaluation History of prostate cancer Left shoulder pain Type 2 diabetes mellitus with hemoglobin A1c goal of less than 7.0% LUQ abdominal pain Diarrhea Obesity (BMI 30-39.9) Diabetes Sleep apnea HTN (hypertension) RBBB GERD (gastroesophageal reflux disease) Elevated cholesterol Prostate cancer Graves disease Shingles Weakness Surgical History History of total right knee replacement History of total left knee replacement History of surgery on lower extremity H/O colonoscopy (~08/18/23) History of neck surgery Hx of umbilical hernia repair Hx of hand surgery Family History Father Colon cancer Mother CVD (cardiovascular disease) Brother Cancer Social History Housing: House Alcohol intake: current Alcohol intake frequency: a few times a week Patient Tobacco Use Status: Former Tobacco user Tobacco use type: Cigarette Years Smoked: 50 +/- service: No Current occupational status: retired Cognitive needs: No Hearing needs: No Vision needs: Yes (rx glasses) Questionnaire PHQ-9 Over the last 2 weeks, how often have you been bothered by any of the following problems? 1. Little interest or pleasure in doing things: not at all 2. Feeling down, depressed, or hopeless: not at all 3. Trouble falling or staying asleep, or sleeping too much: not at all 4. Feeling tired or having little energy: not at all 5. Poor appetite or overeating: not at all 6. Feeling bad about yourself - or that you are a failure or have let yourself or your family down: not at all 7. Trouble concentrating on things, such as reading the newspaper or watching television: not at all 8. Moving or speaking so slowly that other people could have noticed. Or the opposite - being so fidgety or restless that you have been moving around a lot more than usual: not at all 9. Thoughts that you would be better off or of hurting yourself in some way: not at all Total score: 0 Depression Screening Interpretation: Negative Depression Screening Done: Yes 29797 - PHQ-9 Billing: Yes Source: Developed by Drs. Alex Perdue, Mimi Swain, Yannick Ulloa and colleagues, with an educational antwan from [employer]. Thrive Questionnaire Date Thrive assessed: 11/01/24 I am a: Patient What is your living situation today?: I have a steady place to live Within the past 12 months, did the food you bought not last and you didn't have the money to get more?: Never true Within the past 12 months, did you worry whether your food would run out before you got money to buy more?: Never true Do you have trouble paying for medicines?: No Do you have trouble getting transportation to medical appointments?: No Do you have trouble paying your heating and electricity bill?: No Do you have trouble taking care of your child, family member or friend?: No Do you have trouble with day-to-day activities such as bathing, preparing meals, shopping, managing finances, etc.?: No Are you currently unemployed and looking for a job?: No Are you interested in more education?: No Please select the resources that you would like help with: None Currently or been in a relationship where the following occur: No concerns reported THRIVE Score: 0 AUDIT C Alcohol Use Questionnaire (AUDIT-C) 1. How often do you have a drink containing alcohol?: 4 or more times a week 2. How many drinks containing alcohol do you have on a typical day when you are drinking?: 1 or 2 3. How often do you have six or more drinks on one occasion?: Never Total Score: 4 Score Reviewed/Action Taken: No FLORA-7 AMB Questionnaire FLORA-7 Date FLORA - 7 assessed: 11/01/24 Feeling nervous, anxious, or on edge: 0 = Not at all Not being able to stop or control worryin = Not at all Worrying too much about different things: 0 = Not at all Trouble relaxin = Not at all Being so restless that it is hard to sit still: 0 = Not at all Becoming easily annoyed or irritable: 0 = Not at all Feeling afraid as if something awful might happen: 0 = Not at all Total FLORA-7 score (0-4 normal; 5-9 mild; 10-14 moderate; 15-21 severe): 0 Source: Developed by Drs. Alex Perdue, Mimi Swain, Yannick Ulloa and colleagues, with an educational antwan from [employer]. FLORA-7 Assessment Billing FLORA-7 Assessment Tool: FLORA-7 Assessment 81157 Review of Systems Const Details: - Cardiovascular: Denies chest pain, orthopnea, or syncope. - Respiratory: Denies dyspnea, cough, or wheezing. - Neurological: Denies dizziness or weakness. Physical exam (Primary Care) Vital Signs: Last Vital Signs Temp 98 F 02/14/25 11:07 Pulse 62 02/14/25 11:07 Resp 16 02/14/25 11:07 BP 132/62 02/15/25 12:01 Pulse Ox 96 02/14/25 11:07 Oxygen Delivery Method Room Air 02/14/25 11:07 Care Plan Goal for BP management: <140/90 at Goal BMI result Body Mass Index 36.8 BMI Assessment/Plan discussion: High BMI High, discussed plan: lifestyle, weight reduction, dietary, physical activity and alcohol moderation Tobacco/Smoking Status: Tobacco use Status Tobacco use date assessed 12/29/24 02/14/25 11:11 Patient Tobacco Use Status Former Tobacco user 02/14/25 11:11 Tobacco use type Cigarette 02/14/25 11:11 PHQ-9: PHQ-9 Score PHQ-9: Total score 0 02/15/25 11:57 Depression Screening Interpretation: Negative Thrive Assessment: Date of Thrive Assessment Date Thrive assessed 11/01/24 02/14/25 11:11 Currently or been in a relationship where the following occur: No concerns reported Const Other: Appearance: Alert. Oriented X3. No acute distress. Head: Normal external exam. Normocephalic. Atraumatic. Eyes: Pupils are equal, round, and reactive to light. Extraocular movements intact. Conjunctiva and sclera normal. Eyelids normal. Throat: Pharynx normal. Uvula midline. Moist mucous membranes. Neck: Normal inspection. Neck supple. Full range of motion. Cardiovascular: Normal heart rate and rhythm. Heart sound normal. No murmurs noted. Pulses normal throughout. Respiratory: No respiratory distress. Painless inspiration. Breath sounds normal. No wheezes/rales/rhonchi noted. Chest nontender. No accessory muscle usage noted or decreased air movement noted. Abdomen: Soft and nontender. Back: Full range of motion noted. Skin: Skin warm and dry. Normal skin color. Normal skin turgor. No rashes/lesions/lacerations noted. Extremities: No lower extremity edema. Extremities exhibit normal range of motion. Neuro: Oriented X 3. No motor deficit. No sensory deficit. Reflexes normal. Coding Level of Care Code Est Pt Level 4 (01246) Complex EM visit Add On G2211 Diagnoses Preoperative clearance Z01.818 Chronic left shoulder pain M25.512; G89.29 Essential hypertension I10 Type 2 diabetes mellitus with hemoglobin A1c goal of less than 7.0% E11.9 Vitamin D deficiency E55.9 [facility] health care Z00.00 Additional Codes FLORA-7 Assessment Billing - FLORA-7 Assessment Tool: FLORA-7 Assessment 00998 ([id number]) PHQ-9 - 54007 - PHQ-9 Billing: Yes ([id number]) Assessment & Plan Assessment & Plan (1) Preoperative clearance: Code(s): Z01.818 - Encounter for other preprocedural examination Category: Medical Plan: The patient is scheduled for left shoulder surgery on March 09, requiring preoperative clearance. Preoperative tests include CBC, CMP, stool sample, and EKG. (2) Chronic left shoulder pain: Code(s): M25.512 - Pain in left shoulder; G89.29 - Other chronic pain Category: Medical Plan: The patient is scheduled for left shoulder surgery on March 09, requiring preoperative clearance. Preoperative tests include CBC, CMP, stool sample, and EKG. (3) Essential hypertension: Code(s): I10 - Essential (primary) hypertension Category: Medical Plan: The patient's hypertension is managed with hydrochlorothiazide 25 mg daily. Blood pressure was recorded at 132/62 mmHg during the visit, indicating adequate control. (4) Type 2 diabetes mellitus with hemoglobin A1c goal of less than 7.0%: Code(s): E11.9 - Type 2 diabetes mellitus without complications Category: Medical Plan: The patient is on metformin 500 mg p.o. b.i.d. and Januvia 25 mg for diabetes management. His last A1c was 6.9% on December 29, 2024, suggesting reasonable glycemic control. (5) Vitamin D deficiency: Code(s): E55.9 - Vitamin D deficiency, unspecified Category: Medical Plan: The patient is taking vitamin D supplements to manage his deficiency. (6) Preventative health care: Code(s): Z00.00 - Encounter for general adult medical examination without abnormal findings Category: Medical Plan: A stool test is recommended to rule out gastrointestinal infections, to be completed alongside preoperative blood work. Plan Plan Patient was informed and verbally consented to the use of an ambient scribe for clinic note documentation during this visit. 1. Essential Hypertension The patient's hypertension is managed with hydrochlorothiazide 25 mg daily. Blood pressure was recorded at 132/62 mmHg during the visit, indicating adequate control. 2. Type 2 Diabetes Mellitus The patient is on metformin extended release 500 mg p.o. b.i.d. and Januvia 25 mg for diabetes management. His last A1c was 6.9% on December 29, 2024, suggesting reasonable glycemic control. 3. Vitamin D Deficiency The patient is taking vitamin D supplements to manage his deficiency. 4. Preoperative Evaluation For Left Shoulder Surgery The patient is scheduled for left shoulder surgery on March 09, requiring preoperative clearance. Preoperative tests include CBC, CMP, stool sample, and EKG. 5. Preventative Care: Stool Test For Gastrointestinal Health A stool test is recommended to rule out gastrointestinal infections, to be completed alongside preoperative blood work. I discussed with the patient the need for preoperative clearance for his upcoming left shoulder surgery, including the requirement for blood work, EKG, and stool sample testing. We reviewed his current medications and ensured understanding of his diabetes management plan, including the addition of Januvia to his regimen. Orders: Orders Vitamin D 25-OH Total 02/14/25 Z00.00 - Encounter for general adult medical examination without abnormal findings ECG 12 lead EKG 02/14/25 Z01.818 - Encounter for other preprocedural examination GI Panel 02/14/25 R19.7 - Diarrhea, unspecified Medications: Refilled metformin ER 500 mg PO BID 180 tabs 3RF 90 days Patient Instructions: - Complete blood work, EKG, and stool sample testing at least two weeks before surgery. - Continue taking hydrochlorothiazide, Januvia, metformin and vitamin D supplements as prescribed. - Schedule follow-up appointment for diabetes management in April.
[2025-02-14 11:07] VITALS: BP 140/64; PULSE 62; RESP 16; TEMP 36.6; O2SAT 96; BMI 36.8
[2025-02-15 12:01] VITALS: BP 132/62
== END 2025-02-14 11:40 | disposition home or self-care (01) ==
LOC: HO.HMCSH 11:04
PROVIDERS: PCP Internal Medicine; Visit Provider Physician Assistant Medical
DX: M25.512 Pain in left shoulder (principal); Z01.818 Encounter for other preprocedural examination; E11.9 Type 2 diabetes mellitus without complications; G89.29 Other chronic pain; I10 Essential (primary) hypertension; E55.9 Vitamin D deficiency, unspecified

== ENCOUNTER 2025-02-14 11:04 | Outpatient (REF) | payer MEDICARE, SELFPAY ==
[2025-02-14 13:11] LABS: MANUAL DIFF FLAG NO
[2025-02-14 13:32] LABS: Hematocrit 41.1 % (42.0-52.0); Hemoglobin 14.4 g/dl (14.0-18.0); Imm Gran Abs Auto 0.02 X10*3/uL (0.00-0.03); Imm Gran Pct Auto 0.3 % (0.0-0.4); Lymphocytes Absolute Auto 1.6 X10*3/uL (1.2-4.9); Mean Corpuscular HGB Conc 35.0 g/dl (31.0-36.0); Mean Corpuscular Hemoglobin 31.2 pg (27.0-33.0); Mean Corpuscular Volume 89.0 fL (80.0-98.0); NRBC Abs Auto 0.000 X10*3/uL (0.0-0.012); NRBC Pct Auto 0.0 /100WBC (0.0-0.2); Platelet Count 208 X10*3/uL (160-400); Red Blood Count 4.62 X10*6/uL (4.60-5.80); White Blood Count 7.1 X10*3/uL (4.8-10.8)
[2025-02-14 13:48] LABS: Alanine Aminotransferase 23 U/L (0-40); Albumin Level 3.9 g/dL (3.5-5.0); Alkaline Phosphatase 95 U/L (39-117); Anion Gap 12 (12-20); Aspartate Amino Transferase 19 U/L (5-37); Blood Urea Nitrogen 24 mg/dL (9-16); Calcium 9.0 mg/dL (8.4-10.2); Carbon Dioxide 27 mmol/L (22-29); Chloride 108 mmol/L (96-108); Estimated Glomerular Filt Rate > 60; Magnesium 1.7 mg/dL (1.6-2.6); Potassium 4.4 mmol/L (3.3-5.1); Sodium 143 mmol/L (135-145); Total Protein 6.4 g/dL (6.5-8.0)
[2025-02-14 14:32] LABS: Folate > 20.0 ng/mL (> or = 4.0); Vitamin B12 446 pg/mL (200-900)
== END 2025-02-14 11:05 | disposition home or self-care (01) ==
LOC: HO.HMGCLDS 11:04
PROVIDERS: PCP Internal Medicine; Visit Provider Physician Assistant Medical
DX: Z01.818 Encounter for other preprocedural examination (principal); M25.512 Pain in left shoulder; G89.29 Other chronic pain; I10 Essential (primary) hypertension; E11.9 Type 2 diabetes mellitus without complications; E55.9 Vitamin D deficiency, unspecified; Z79.84 Long term (current) use of oral hypoglycemic drugs; Z79.899 Other long term (current) drug therapy; Z13.31 Encounter for screening for depression; Z00.00 Encounter for general adult medical examination without abnormal findings
CPT/HCPCS: 36415; 80053; 82248; 82306; 82607; 82746; 83735; 85025; 96127; 99212

== ENCOUNTER → 2025-02-15 14:18 | Outpatient (REF) | payer MEDICARE, SELFPAY ==
--- NOTE | 2025-02-15 14:30 | ECG_ITS ---
Test Reason : pre op Blood Pressure : */* mmHG Vent. Rate : 64 BPM Atrial Rate : 64 BPM P-R Int : 140 ms QRS Dur : 100 ms QT Int : 438 ms P-R-T Axes : 53 38 30 degrees QTcB Int : 451 ms Normal sinus rhythm Incomplete right bundle branch block Borderline ECG When compared with ECG of 08-Aug-2022 14:10, No significant change was found Referred By: Whit New Electronically Signed By: KIERA IVAN MD
[2025-02-15 15:57] LABS: CDiff Gene PCR NEGATIVE (Negative)
[2025-02-16 07:21] LABS: E. coli EAEC Not Detected (Not Detect.); E. coli EPEC Not Detected (Not Detect.); E. coli ETEC Not Detected (Not Detect.); E. coli STEC Not Detected (Not Detect.); Shigella sp./EIEC Not Detected (Not Detect.)
== END ==
LOC: HO.CARD 14:18
PROVIDERS: PCP Internal Medicine; Visit Provider Physician Assistant Medical
DX: Z01.810 Encounter for preprocedural cardiovascular examination (principal); R10.12 Left upper quadrant pain; R19.7 Diarrhea, unspecified
CPT/HCPCS: 87338; 87493; 87507; 93005

== ENCOUNTER → 2025-02-15 14:30 | Outpatient (BNV) | payer MEDICARE, SELFPAY | PROVIDERS: PCP Internal Medicine; Visit Provider Internal Medicine Cardiovascular Disease | DX: I45.10 Unspecified right bundle-branch block (principal) | CPT/HCPCS: 93010 ==

== ENCOUNTER 2025-03-15 11:56 | Outpatient (REF) | payer MEDICARE, SELFPAY ==
--- NOTE | ~2025-03-15 | CT_ITS ---
EXAMINATION: CT ABDOMEN PELVIS WITH IV CONTRAST HISTORY: diarrhea, LUQ abd pain COMPARISON: There are no prior studies for available comparison. TECHNIQUE: CT scan of the abdomen and pelvis was performed following administration of 85 mL Omnipaque 350 using standard departmental protocol. Coronal and sagittal reformatted images were generated and reviewed. The patient received oral contrast material. This CT exam was performed with one or more of the following dose reduction techniques: automated exposure control, adjustment of the mA and/or kV according to patient size, use of iterative reconstruction technique. DLP: 758 mGy-cm FINDINGS: LOWER CHEST: There is subsegmental atelectasis versus scarring at the right lung base. There is no pleural effusion. CARDIOVASCULATURE: The heart is normal in size. There is no pericardial effusion. LIVER: The liver is normal in size and contour. There are multiple liver cysts, the largest of which is in the left lobe measuring 8.5 cm in size. The hepatic and portal veins are patent. GALLBLADDER / BILE DUCTS: The gallbladder is unremarkable. There is no intra or extrahepatic biliary ductal dilatation. SPLEEN: The spleen is normal in size. No focal splenic lesion is identified. PANCREAS: There is moderate atrophy of the pancreas. Pancreatic parenchymal calcifications are noted in the body and tail, consistent with chronic pancreatitis. ADRENAL GLANDS: Within normal limits. KIDNEYS/RETROPERITONEUM: No renal calculi are identified. There is no hydronephrosis. There are multiple bilateral renal cortical cysts measuring up to 7.1 cm on the right and 3.3 cm on the left. Multiple bilateral renal parapelvic cysts are also noted. LYMPH NODES: No abdominal or pelvic lymphadenopathy. VASCULATURE: The abdominal aorta is normal in caliber. MESENTERY/PERITONEUM: No free fluid. No masses. There is no free intraperitoneal gas. STOMACH: There is a small hiatal hernia. SMALL BOWEL: The small bowel is normal in caliber. COLON: The colon is unremarkable. APPENDIX: Normal. URINARY BLADDER/PELVIC ORGANS: The urinary bladder is unremarkable. Multiple prostate seeds are noted in place. BONES / SOFT TISSUES: There is degenerative disc disease of the spine. CT/CT abdomen pelvis w IV con IMPRESSION: 1. Hepatic and bilateral renal cysts as described. 2. Small hiatal hernia. 3. Findings consistent with chronic pancreatitis. Moderate pancreatic atrophy. Electronically signed by: Alex Vallecillo MD 03/15/2025 02:51 PM EDT
[2025-03-15] MEDS: iohexoL 350 MG/ML 100 ML INFUS..BTL IV (14:44)
[2025-03-15] MEDS: Barium Sulfate Oral (Berry) 450 ML ORAL.SUSP 900 ML PO (14:44)
== END 2025-03-15 11:57 | disposition home or self-care (01) ==
LOC: HO.CT 11:56
PROVIDERS: PCP Internal Medicine; Visit Provider Physician Assistant Medical
DX: R10.12 Left upper quadrant pain (principal); R19.7 Diarrhea, unspecified
CPT/HCPCS: 74177; Q9967

== ENCOUNTER → 2025-03-15 14:00 | Outpatient (BNV) | payer MEDICARE, SELFPAY | PROVIDERS: PCP Internal Medicine; Visit Provider Radiology Diagnostic Radiology | DX: R19.7 Diarrhea, unspecified (principal); N28.1 Cyst of kidney, acquired; K76.89 Other specified diseases of liver; K44.9 Diaphragmatic hernia without obstruction or gangrene | CPT/HCPCS: 74177 ==

== ENCOUNTER 2025-05-02 10:25 | Outpatient (AMB) | payer MEDICARE, SELFPAY ==
[2025-05-02 10:43] VITALS: BP 140/90; PULSE 70; RESP 16; TEMP 36.7; O2SAT 95; BMI 36.0
--- NOTE | 2025-05-02 10:43 | MHC.PC.OV ---
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 Accompanied by: Self / Same As Patient Allergies No Known Allergies Allergy (Verified 05/02/25 10:43) Tobacco use date assessed: 05/02/25 Dental Screening Dental Screen Date: 11/01/24 [facility] Medical History Chronic pancreatitis Preventative health care Chronic left shoulder pain Vitamin D deficiency Preoperative clearance Pre-op evaluation History of prostate cancer Left shoulder pain Type 2 diabetes mellitus with hemoglobin A1c goal of less than 7.0% LUQ abdominal pain Diarrhea Obesity (BMI 30-39.9) Diabetes Sleep apnea HTN (hypertension) RBBB GERD (gastroesophageal reflux disease) Elevated cholesterol Prostate cancer Graves disease Shingles Weakness Surgical History History of total right knee replacement History of total left knee replacement History of surgery on lower extremity H/O colonoscopy (~08/18/23) History of neck surgery Hx of umbilical hernia repair Hx of hand surgery Family History Father Colon cancer Mother CVD (cardiovascular disease) Brother Cancer Social History Housing: House Alcohol intake: current Alcohol intake frequency: a few times a week Patient Tobacco Use Status: Former Tobacco user Tobacco use type: Cigarette Years Smoked: 50 +/- service: No Current occupational status: retired Cognitive needs: No Hearing needs: No Vision needs: Yes (rx glasses) Questionnaire PHQ-9 Over the last 2 weeks, how often have you been bothered by any of the following problems? 1. Little interest or pleasure in doing things: not at all 2. Feeling down, depressed, or hopeless: not at all 3. Trouble falling or staying asleep, or sleeping too much: not at all 4. Feeling tired or having little energy: not at all 5. Poor appetite or overeating: not at all 6. Feeling bad about yourself - or that you are a failure or have let yourself or your family down: not at all 7. Trouble concentrating on things, such as reading the newspaper or watching television: not at all 8. Moving or speaking so slowly that other people could have noticed. Or the opposite - being so fidgety or restless that you have been moving around a lot more than usual: not at all 9. Thoughts that you would be better off or of hurting yourself in some way: not at all Total score: 0 Depression Screening Interpretation: Negative Depression Screening Done: Yes 32448 - PHQ-9 Billing: Yes Source: Developed by Drs. Alex Perdue, Mimi Swain, Yannick Ulloa and colleagues, with an educational antwan from [employer]. Thrive Questionnaire Date Thrive assessed: 11/01/24 I am a: Patient What is your living situation today?: I have a steady place to live Within the past 12 months, did the food you bought not last and you didn't have the money to get more?: Never true Within the past 12 months, did you worry whether your food would run out before you got money to buy more?: Never true Do you have trouble paying for medicines?: No Do you have trouble getting transportation to medical appointments?: No Do you have trouble paying your heating and electricity bill?: No Do you have trouble taking care of your child, family member or friend?: No Do you have trouble with day-to-day activities such as bathing, preparing meals, shopping, managing finances, etc.?: No Are you currently unemployed and looking for a job?: No Are you interested in more education?: No Please select the resources that you would like help with: None Currently or been in a relationship where the following occur: No concerns reported THRIVE Score: 0 AUDIT C Alcohol Use Questionnaire (AUDIT-C) 1. How often do you have a drink containing alcohol?: 4 or more times a week 2. How many drinks containing alcohol do you have on a typical day when you are drinking?: 1 or 2 3. How often do you have six or more drinks on one occasion?: Never Total Score: 4 Score Reviewed/Action Taken: No FLORA-7 AMB Questionnaire FLORA-7 Date FLORA - 7 assessed: 11/01/24 Feeling nervous, anxious, or on edge: 0 = Not at all Not being able to stop or control worryin = Not at all Worrying too much about different things: 0 = Not at all Trouble relaxin = Not at all Being so restless that it is hard to sit still: 0 = Not at all Becoming easily annoyed or irritable: 0 = Not at all Feeling afraid as if something awful might happen: 0 = Not at all Total FLORA-7 score (0-4 normal; 5-9 mild; 10-14 moderate; 15-21 severe): 0 Source: Developed by Drs. Alex Perdue, Mimi Swain, Yannick Ulloa and colleagues, with an educational antwan from [employer]. FLORA-7 Assessment Billing FLORA-7 Assessment Tool: FLORA-7 Assessment 67890 Physical exam (Primary Care) Vital Signs: Last Vital Signs Temp 98.0 F 05/02/25 10:43 Pulse 70 05/02/25 10:43 Resp 16 05/02/25 10:43 BP 140/90 H 05/02/25 10:43 Pulse Ox 95 05/02/25 10:43 Oxygen Delivery Method Room Air 05/02/25 10:43 BMI result Body Mass Index 36.0 Tobacco/Smoking Status: Tobacco use Status Tobacco use date assessed 05/02/25 05/02/25 10:44 Patient Tobacco Use Status Former Tobacco user 05/02/25 10:44 Tobacco use type Cigarette 05/02/25 10:44 PHQ-9: PHQ-9 Score PHQ-9: Total score 0 05/02/25 11:14 Depression Screening Interpretation: Negative Thrive Assessment: Date of Thrive Assessment Date Thrive assessed 11/01/24 05/02/25 10:44 Currently or been in a relationship where the following occur: No concerns reported Results AMB Hemoglobin A1c AMB Hemoglobin A1c 7.9 % Last Edit by BELINDA Willis on 05/02/25 11:15 Results Reviewed Results Reviewed: Laboratory Last Values Hgb A1c (Clinic) 7.9 % (4.0-6.0) H 05/02/25 11:13 Coding Level of Care Code Est Pt Level 4 (26608) Complex EM visit Add On G2211 Diagnoses Diabetes E11.9 Additional Codes FLORA-7 Assessment Billing - FLORA-7 Assessment Tool: FLORA-7 Assessment 15635 ([id number]) PHQ-9 - 73050 - PHQ-9 Billing: Yes ([id number]) Assessment & Plan Assessment & Plan (1) Diabetes: Comment: type 2-taking metformin Code(s): E11.9 - Type 2 diabetes mellitus without complications Category: Medical Plan: Elevated A1c noted. Jardiance added to the regimen. Counselling on diet and exercise done. Plan History of Present Illness - The patient is a 74-year-old male presenting for routine management of chronic conditions and preventative care. - Diabetes Mellitus: Managed with metformin twice daily. Recent labs showed elevated blood glucose and A1c levels. - Hypertension: Controlled with hydrochlorothiazide 25 mg daily. - Hyperlipidemia: On statin therapy, with reassurance provided regarding muscle pain concerns. - Cataracts: Advised to seek further evaluation following diagnosis by eye doctor. - Preventative care: Colonoscopy scheduled for June 20, deemed non-urgent. 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 Review of Systems - Cardiovascular: Denies history of heart disease. - Endocrine: Reports diabetes mellitus. - Ophthalmologic: Reports being informed of cataracts. Physical Exam General: Cooperative and healthy appearing Nutritional Appearance: Well nourished Orientation/consciousness: Patient oriented x3 Limitations: No limitations Head: Normal to inspection General: Appearance normal, both eyes and all related structures Neck: Normal visual inspection Chest: Normal palpation of entire chest wall Respiratory: N ormal respiratory effort Neurology: Patient oriented x3, reports good vision but has been informed of developing cataracts by Dr. Jimenez, the eye doctor. Results - Labs: Last blood work in January showed blood glucose of 234 mg/dL and A1c of 6.9%. - Labs: Liver function tests were normal. - Labs: Cholesterol levels were within normal limits as of October. Plan - Continue current medications: Metformin, hydrochlorothiazide, statin, and vitamin D as prescribed. - Schedule follow-up blood work to monitor glucose and A1c levels. - Proceed with scheduled colonoscopy on June 20. - Follow up with ophthalmology for cataract evaluation. Discussion Notes I discussed with the patient the importance of continuing his current medication regimen, including metformin, hydrochlorothiazide, and statin, to manage his chronic conditions effectively. We reviewed his recent lab results, noting the need for follow-up blood work to monitor his glucose and A1c levels. I also emphasized the importance of attending his scheduled colonoscopy and following up with ophthalmology for cataract evaluation. Patient Instructions - Continue taking all prescribed medications as directed. - Schedule and attend follow-up blood work appointments. - Attend the colonoscopy appointment on June 20. - Follow up with your eye doctor regarding cataracts. Orders: Orders AMB Hemoglobin A1c Today E11.9 - Type 2 diabetes mellitus without complications Medications: New empagliflozin (Jardiance) 25 mg PO DAILY 90 tabs 1RF
== END 2025-05-02 11:23 | disposition home or self-care (01) ==
LOC: HO.HMCSH 10:25
PROVIDERS: PCP Internal Medicine; Visit Provider Internal Medicine
DX: E11.9 Type 2 diabetes mellitus without complications (principal)

== ENCOUNTER → 2025-05-02 10:25 | Outpatient (BNVA) | payer MEDICARE, SELFPAY | PROVIDERS: PCP Internal Medicine; Visit Provider Internal Medicine | DX: E11.36 Type 2 diabetes mellitus with diabetic cataract (principal); I10 Essential (primary) hypertension; E78.5 Hyperlipidemia, unspecified | CPT/HCPCS: 83036; 96127; 99212 ==